=== PATIENT | male | born 1960 | race Caucasian/White ===

== ENCOUNTER 2024-06-24 08:44 | Inpatient (IN) | payer MEDICARE, OTHER ==
--- NOTE | 2024-06-24 08:56 | ED ---
General Adult HPI - General Stated complaint: Chest pain Time Seen by Provider: 06/24/24 08:47 Source: patient, EMS, RN notes reviewed Mode of arrival: EMS Limitations: no limitations - History of Present Illness Initial comments: 63-year-old male presents emergency department via EMS from [place] with chief complaint chest pain. Started proxy 1 hour prior to going to nurses station at [place]. Patient states he does feel better after receiving aspirin. Patient was admitted [place] 1 week ago for crack cocaine use. Patient states he does have a history of HIV and hyperlipidemia denies any other prior cardiac disease denies current shortness of breath fever chills cough - Related Data Allergies Allergy/AdvReac Type Severity Reaction Status Date / Time Penicillins Allergy Rash/Hives Verified 06/24/24 08:54 Review of Systems ROS Statement: Those systems with pertinent positive or pertinent negative responses have been documented in the HPI. ROS Other: All systems not noted in ROS Statement are negative. Past Medical History Past Medical History: Chest Pain / Angina Additional Past Medical History / Comment(s): crack cocaine abuse Past Surgical History: Orthopedic Surgery Additional Past Surgical History / Comment(s): L mastoidectomy, open reduction L tibia. jaw wired shut Past Psychological History: Anxiety, Depression Smoking Status: Current every day smoker Past Alcohol Use History: Occasional Past Drug Use History: Cocaine, Marijuana General Exam Limitations: no limitations General appearance: alert, in no apparent distress Head exam: Present: atraumatic, normocephalic, normal inspection Eye exam: Present: normal appearance, PERRL, EOMI. Absent: scleral icterus, conjunctival injection, periorbital swelling ENT exam: Present: normal exam, normal oropharynx, mucous membranes moist Neck exam: Present: normal inspection, full ROM. Absent: tenderness, meningismus, lymphadenopathy Respiratory exam: Present: normal lung sounds bilaterally. Absent: respiratory distress, wheezes, rales, rhonchi, stridor Cardiovascular Exam: Present: normal rhythm, tachycardia, normal heart sounds. Absent: systolic murmur, diastolic murmur, rubs, gallop, clicks GI/Abdominal exam: Present: soft, normal bowel sounds. Absent: distended, tenderness, guarding, rebound, rigid Neurological exam: Present: alert, oriented X3 Course Vital Signs 06/24/24 06/24/24 06/24/24 08:47 09:26 10:06 Temperature 98.3 F Pulse Rate 108 H 86 80 Respiratory 18 18 18 Rate Blood Pressure 120/73 96/64 125/82 O2 Sat by Pulse 96 100 97 Oximetry EKG Findings - EKG Comments: EKG Findings:: 849 sinus tachycardia with first-degree block rate of 103 FL 212 QRS 93 QT/QTc 359/490 there is no significant ST elevation noted - EKG Results: EKG: interpreted by OSKAR Medical Decision Making - Medical Decision Making Was pt. sent in by a medical professional or institution (, [facility], M[facility] HOLDER, urgent care, hospital, or assisted...) When possible be specific @ -[place] Did you speak to anyone other than the patient for history (EMS, parent, family, police, friend...)? What history was obtained from this source @ -No Did you review nursing and triage notes (agree or disagree)? Why? @ -I reviewed and agree with nursing and triage notes Were old charts reviewed (outside hosp., previous admission, EMS record, old EKG, old radiological studies, urgent care reports/EKG's, assisted records)? Report findings @ -No old charts were reviewed Differential Diagnosis (chest pain, altered mental status, abdominal pain women, abdominal pain men, vaginal bleeding, weakness, fever, dyspnea, syncope, headache, dizziness, GI bleed, back pain, seizure, CVA, palpatations, mental health, musculoskeletal)? @ -Differential Chest Pain: Stable Angina, Unstable Angina, STEMI, NSTEMI Aortic Dissection, Pneumothorax, Musculoskeletal, Esophageal Spasm GERD, Cholecystitis, Pancreatitis, Zoster, this is not meant to be an all-inclusive list. EKG interpreted by me (3pts min.). @ -As above X-rays interpreted by me (1pt min.). @ -Chest x-ray shows hyperinflation CT interpreted by me (1pt min.). @ -None done U/S interpreted by me (1pt. min.). @ -None done What testing was considered but not performed or refused? (CT, X-rays, U/S, labs)? Why? @ -None What meds were considered but not given or refused? Why? @ -None Did you discuss the management of the patient with other professionals (professionals i.e. , BERE, MOLD HOLDER, lab, RT, psych nurse, social science manager, guest service agent, teacher, special service officer, case work aide)? Give summary @ -Dr Mercado for admission Was smoking cessation discussed for >3mins.? @ -No Was critical care preformed (if so, how long)? @ -35 mins Were there social determinants of health that impacted care today? How? (Homelessness, low income, unemployed, alcoholism, drug addiction, transportation, low edu. Level, literacy, decrease access to med. care, intermediate, rehab)? @ -No Was there de-escalation of care discussed even if they declined (Discuss DNR or withdrawal of care, Hospice)? DNR status @ -No What co-morbidities impacted this encounter? (DM, HTN, Smoking, COPD, CAD, Cancer, CVA, ARF, Chemo, Hep., AIDS, mental health diagnosis, sleep apnea, morbid obesity)? @ -Lipidemia, HIV Was patient admitted / discharged? Hospital course, mention meds given and route, prescriptions, significant lab abnormalities, going to OR and other p ertinent info. @ -[Admitted patient's found to have elevated troponin 0.044 patient was started on heparin. Patient did receive aspirin prior to arrival. Symptoms are improving not requiring nitro at this time. Patient will have repeat troponin, echocardiogram cardiology evaluation for NSTEMI. Undiagnosed new problem with uncertain prognosis? @ -No Drug Therapy requiring intensive monitoring for toxicity (Heparin, Nitro, Insulin, Cardizem)? @ -No Were any procedures done? @ -No Diagnosis/symptom? @ -Chest pain Acute, or Chronic, or Acute on Chronic? @ -acute Uncomplicated (without systemic symptoms) or Complicated (systemic symptoms)? @ -complicated Side effects of treatment? @ -No Exacerbation, Progression, or Severe Exacerbation? @ -No Poses a threat to life or bodily function? How? (Chest pain, USA, PA, pneumonia, PE, COPD, DKA, ARF, appy, cholecystitis, CVA, Diverticulitis, Homicidal, Suicidal, threat to staff... and all critical care pts) @ -yes chest pain, risk to cardiac function - Lab Data Result diagrams: 06/24/24 08:57 06/24/24 08:57 Lab Results 06/24/24 06/24/24 06/24/24 Range/Units 08:57 08:57 08:57 WBC 15.73 H (4.50-10.00) 10*3/uL RBC 5.18 (4.40-5.60) 10*6/uL Hgb 17.1 H (13.0-17.0) g/dL Hct 48.0 (39.6-50.0) % MCV 92.7 (80.0-97.0) fL MCH 33.0 H (27.0-32.0) pg MCHC 35.6 (32.0-37.0) g/dL Plt Count 369 (140-440) 10*3/uL MPV 8.8 L (9.5-12.2) fL Immature Gran % (Auto) 0.6 % Neutrophils % 81.2 % Lymphocytes % 8.9 % Monocytes % 8.9 % Eosinophils % 0.1 % Basophils % 0.3 % Immature Gran # 0.09 H (0.00-0.04) 10*3/uL Neutrophils # 12.79 H (1.80-7.70) 10*3/uL Lymphocytes # 1.40 (0.90-5.00) 10*3/uL Monocytes # 1.40 H (0.20-1.00) 10*3/uL Eosinophils # 0.01 L (0.04-0.35) 10*3/uL Basophils # 0.04 (0.00-0.10) 10*3/uL PT 11.7 (10.0-12.5) sec INR 1.1 (<1.2) APTT 20.7 L (22.0-30.0) sec Sodium 135 L (137-145) mmol/L Potassium 4.0 (3.5-5.1) mmol/L Chloride 100 (98-107) mmol/L Carbon Dioxide 23 (22-30) mmol/L Anion Gap 12 mmol/L BUN 24 H (9-20) mg/dL Creatinine 1.15 (0.66-1.25) mg/dL Est GFR (CKD-EPI)AfAm 77 (>60 ml/min/1.73 sqM) Est GFR (CKD-EPI)NonAf 67 (>60 ml/min/1.73 sqM) Glucose 119 H (74-99) mg/dL Calcium 10.1 (8.4-10.2) mg/dL Magnesium 2.2 (1.6-2.3) mg/dL Total Bilirubin 0.9 (0.2-1.3) mg/dL AST 34 (17-59) U/L ALT 24 (4-49) U/L Alkaline Phosphatase 50 (38-126) U/L Troponin I (0.000-0.034) ng/mL NT-Pro-B Natriuret Pep 2320 pg/mL Total Protein 7.5 (6.3-8.2) g/dL Albumin 4.7 (3.5-5.0) g/dL 06/24/24 Range/Units 08:57 WBC (4.50-10.00) 10*3/uL RBC (4.40-5.60) 10*6/uL Hgb (13.0-17.0) g/dL Hct (39.6-50.0) % MCV (80.0-97.0) fL MCH (27.0-32.0) pg MCHC (32.0-37.0) g/dL Plt Count (140-440) 10*3/uL MPV (9.5-12.2) fL Immature Gran % (Auto) % Neutrophils % % Lymphocytes % % Monocytes % % Eosinophils % % Basophils % % Immature Gran # (0.00-0.04) 10*3/uL Neutrophils # (1.80-7.70) 10*3/uL Lymphocytes # (0.90-5.00) 10*3/uL Monocytes # (0.20-1.00) 10*3/uL Eosinophils # (0.04-0.35) 10*3/uL Basophils # (0.00-0.10) 10*3/uL PT (10.0-12.5) sec INR (<1.2) APTT (22.0-30.0) sec Sodium (137-145) mmol/L Potassium (3.5-5.1) mmol/L Chloride (98-107) mmol/L Carbon Dioxide (22-30) mmol/L Anion Gap mmol/L BUN (9-20) mg/dL Creatinine (0.66-1.25) mg/dL Est GFR (CKD-EPI)AfAm (>60 ml/min/1.73 sqM) Est GFR (CKD-EPI)NonAf (>60 ml/min/1.73 sqM) Glucose (74-99) mg/dL Calcium (8.4-10.2) mg/dL Magnesium (1.6-2.3) mg/dL Total Bilirubin (0.2-1.3) mg/dL AST (17-59) U/L ALT (4-49) U/L Alkaline Phosphatase (38-126) U/L Troponin I 0.044 H* (0.000-0.034) ng/mL NT-Pro-B Natriuret Pep pg/mL Total Protein (6.3-8.2) g/dL Albumin (3.5-5.0) g/dL Critical Care Time Critical Care Time: Yes Total Critical Care Time: 35 Disposition Clinical Impression: Chest pain Disposition: ADMITTED IP TO THIS [facility] Condition: Fair Referrals: Nonstaff,Physician [Primary Care Provider] - 1-2 days Time of Disposition: 10:21
[2024-06-24] MEDS: SODIUM CHLORIDE 0.9% 1,000 ML IV STA (09:06)
[2024-06-24 09:07] LABS: Basophils # (A) 0.04 10*3/uL (0.00-0.10); Basophils % (A) 0.3 %; Eosinophils # (A) 0.01 10*3/uL (0.04-0.35); Eosinophils % (A) 0.1 %; HGB 17.1 g/dL (13.0-17.0); Lymphocytes % (A) 8.9 %; MCHC 35.6 g/dL (32.0-37.0); MCV 92.7 fL (80.0-97.0); Mean Platelet Volume 8.8 fL (9.5-12.2); Monocytes % (A) 8.9 %; Neutrophils # (A) 12.79 10*3/uL (1.80-7.70); Neutrophils % (A) 81.2 %; Platelet Count 369 10*3/uL (140-440); RBC 5.18 10*6/uL (4.40-5.60); RDW 12.7 % (11.5-14.5); WBC 15.73 10*3/uL (4.50-10.00)
[2024-06-24 09:20] LABS: ALT 24 U/L (4-49); AST 34 U/L (17-59); African American GFR (CKD) 77 (>60 ml/min/1.73 sqM); Albumin 4.7 g/dL (3.5-5.0); Alkaline Phosphatase 50 U/L (38-126); Anion Gap 12 mmol/L; Blood Urea Nitrogen 24 mg/dL (9-20); Calcium 10.1 mg/dL (8.4-10.2); Carbon Dioxide 23 mmol/L (22-30); Chloride 100 mmol/L (98-107); Glucose 119 mg/dL (74-99); Magnesium 2.2 mg/dL (1.6-2.3); Non-African American GFR(CKD) 67 (>60 ml/min/1.73 sqM); Sodium 135 mmol/L (137-145); Total Bilirubin 0.9 mg/dL (0.2-1.3); Total Protein 7.5 g/dL (6.3-8.2)
--- NOTE | 2024-06-24 09:20 | XR ---
EXAMINATION TYPE: XR chest 2V DATE OF EXAM: 06/24/2024 9:06 AM COMPARISON: None CLINICAL INDICATION: Male, 63 years old with history of Chest Pain, , TECHNIQUE: AP and lateral views FINDINGS: Heart normal size. Aorta and pulmonary vasculature within normal limits. Mild hyperinflation. No cons olidation or pleural effusion. Narrowing of the subacromial space of the right shoulder. IMPRESSION: 1. Mild hyperinflation may reflect depth of inspiration or underlying emphysema. Clinically correlate . Otherwise, no acute process seen. 2. Chronic full-thickness rotator cuff tear suggested at the right shoulder. [facility], Workstation: [facility], 06/24/2024 9:18 AM
[2024-06-24 09:24] LABS: INR 1.1 (<1.2); Partial Thromboplastin Time 20.7 sec (22.0-30.0); Prothrombin Time 11.7 sec (10.0-12.5)
[2024-06-24 09:28] LABS: NT-Pro-B-Type Natriuretic Pept 2320 pg/mL
[2024-06-24] MEDS: HEPARIN SOD,PORK IN 0.45% NACL 25,000 UNIT in 0.45% NACL 1 250ML.BAG IV SCH (10:04)
[2024-06-24] MEDS: HEPARIN SODIUM 1,000 UN/ML (10ML VL) IV ONE (10:04)
[2024-06-24] MEDS ORDERED: NITROGLYCERIN SL TABS 0.4 MG TAB SUBLINGUAL PRN (10:21)
[2024-06-24] MEDS ORDERED: CALCIUM CARB-VIT D 500 MG-5 MCG TAB PO PRN (13:01)
--- NOTE | 2024-06-24 13:55 | CT ---
EXAMINATION TYPE: CT chest wo con DATE OF EXAM: 06/24/2024 1:30 PM COMPARISON: None. CLINICAL INDICATION: Male, 63 years old with history of copd/cap, CHEST PAIN TECHNIQUE: Axial images were obtained at 5 mm thick sections. Reconstructed images are reviewed on [employer] computer in the coronal plane. Contrast used: mL of , (none if empty) Oral contrast used: (none if empty) CT DLP: 336 mGycm, Automated exposure control for dose reduction was used. FINDINGS: Portion of the thyroid visualized is normal. No suspicious lung nodules or focal infiltrates are present. No enlarged mediastinal or hilar adenopathy is evident. A few small shoddy lymph nodes are within th e mediastinum and hilum. The Ascending aorta diameter at the level of the main pulmonary artery is 4 .4 cm. The main pulmonary artery diameter at the bifurcation is 3.7 cm. Moderate coronary artery calcifications present. Limited CT sections are obtained through the upper abdomen. Small to moderate size hiatal hernia is p resent. Note is made of a couple of cysts within the liver. Gallstone is present. IMPRESSION: 1. No acute changes CT chest. 2. Ascending thoracic aortic aneurysm of 4.4 cm. 3. Hiatal hernia. 4. Cholelithiasis [facility], , 06/24/2024 1:53 PM
--- NOTE | 2024-06-24 15:51 | CT ---
EXAMINATION TYPE: CT angio chest DATE OF EXAM: 06/24/2024 3:28 PM COMPARISON: None. CLINICAL INDICATION: Male, 63 years old with history of elevated d-dimer, elevated d-dimer, TECHNIQUE: CT of the chest is performed on a spiral scan at 2 mm thick sections. Study is performed with intravenous contrast timed for evaluation for pulmonary embolism. This will limit additional po rtions of the evaluation. 10mm MIP images reconstructed by the technologist are reviewed on the comp uter in the coronal and sagittal planes. Contrast used:100 ml mL of Isovue 370 with IV Contrast, (none if empty) Oral contrast used: (none if empty) CT DLP: 325.8 mGycm, Automated exposure control for dose reduction was used. FINDINGS: No persistent filling defects are evident to suggest an acute pulmonary embolism. No mediastinal or hilar adenopathy enlarged by CT criteria is evident. The ascending aorta diameter at the level of the main pulmonary artery is 4.1 cm. There is some aneu rysmal bulging along the proximal descending thoracic aorta estimated at 1.8 cm. The main pulmonary artery diameter at the bifurcation is 3.3 cm. There is a moderate-sized hiatal he rnia present. Lung windows are clear. No significant coronary artery calcifications. Limited CT sections were through the upper abdomen. Hepatic cysts are present. IMPRESSION: 1. Aneurysmal dilatation of the ascending thoracic aorta measuring 4.1 cm. There is some focal aneury smal bulge of the proximal descending thoracic aorta distal to the aortic arch estimated at 1.8 cm in depth. 2. No acute pulmonary embolism. [facility], , 06/24/2024 3:49 PM
[2024-06-24] MEDS: HEPARIN SODIUM 1,000 UN/ML (10ML VL) IV PRN (17:15)
[2024-06-24] MEDS ORDERED: NON FORMULARY DRUG (Omega-3 Acid Ethyl Esters [Lovaza] 1 GM Capsule) PO SCH (17:30)
[2024-06-24] MEDS: ATORVASTATIN 20 MG TAB PO SCH (20:58)
[2024-06-24] MEDS: traZODone HCL 100 MG TAB PO SCH (20:58)
--- NOTE | 2024-06-24 23:36 | HP ---
HISTORY AND PHYSICAL HISTORY OF PRESENT ILLNESS: A white male, came to [place] for nausea, vomiting, and now chest pain. He had a mild aneurysm of 4.[address] of the chest, metastatic hiatal hernia. No signs of pulmonary embolism. White count is 15.73, hemoglobin is 17.1, neutrophils high at 12.79, sodium 135, potassium 4.0. PHYSICAL EXAMINATION: CARDIOVASCULAR: S1, S2. LUNGS: Decreased breath sounds. PSYCH: Fair mood and affect. NEUROLOGIC: Alert, and oriented x3. GI: Soft. ASSESSMENT: He has a history of HIV and hyperlipidemia. Denies any other cardiac disease. History of crack cocaine abuse. Goes to [place] for this. He has had depression. Left mastoid surgery. Anxiety, depression. Current everyday smoker, cocaine, marijuana. EKG, sinus tachycardia. Acute emesis secondary to possible gastroenteritis with possible aspiration pneumonia. White count is elevated secondary to possible bronchitis or pneumonia. 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 Atypical chest pain. Waiting for Cardiology to clear the patient. Elevated troponin x1. Prognosis guarded. MMODL / IJN: [id number] /
[2024-06-25 05:13] LABS: Glucose,Whole Blood 139 mg/dL (70-110)
[2024-06-25] MEDS: SODIUM CHLORIDE 0.9% 1,000 ML IV ONE (05:25)
[2024-06-25 05:56] LABS: Basophils # (A) 0.05 10*3/uL (0.00-0.10); Basophils % (A) 0.4 %; Eosinophils # (A) 0.01 10*3/uL (0.04-0.35); Eosinophils % (A) 0.1 %; HCT 34.2 % (39.6-50.0); Lymphocytes % (A) 14.6 %; MCH 32.9 pg (27.0-32.0); MCHC 34.8 g/dL (32.0-37.0); MCV 94.5 fL (80.0-97.0); Mean Platelet Volume 8.9 fL (9.5-12.2); Monocytes # (A) 1.47 10*3/uL (0.20-1.00); Monocytes % (A) 11.3 %; Neutrophils # (A) 9.45 10*3/uL (1.80-7.70); Neutrophils % (A) 72.8 %; Platelet Count 268 10*3/uL (140-440); RBC 3.62 10*6/uL (4.40-5.60); RDW 12.8 % (11.5-14.5); WBC 12.98 10*3/uL (4.50-10.00)
[2024-06-25 06:02] LABS: HGB 11.9 g/dL (13.0-17.0)
[2024-06-25 06:05] LABS: Glucose,Whole Blood 125 mg/dL (70-110)
[2024-06-25 06:05] LABS: INR 1.1 (<1.2); Partial Thromboplastin Time 35.2 sec (22.0-30.0); Prothrombin Time 12.1 sec (10.0-12.5)
--- NOTE | 2024-06-25 06:45 | P.CNPUL ---
History of Present Illness Consult date: 06/25/24 Requesting physician: Keyon Cota Reason for consult: other (ICU management, GI bleed) Chief complaint: Chest pain History of present illness: Patient is a 63-year-old male with past medical history significant for crack cocaine abuse, hyperlipidemia. Sent in from [place] with a chief complaint of chest pain yesterday morning. Per the patient he has had intractable nausea and vomiting that started on Monday. Reportedly dark-colored emesis. No alyssia blood. Reportedly, was taking daily 200 mg tab ibuprofen for chronic right hip pain. Workup in the emergency department including a chest CT angio did not show any acute pulmonary embolism. Remarkable for aneurysm dilation of the ascending thoracic aorta measuring 4.1 cm with focal aneurysmal bulge of the proximal descending thoracic aorta distal to the thoracic aortic arch estimated at 1.8 cm in depth. Also, moderate size hiatal hernia. Labs done on admission include a CBC with a WBC count of 15.7, hemoglobin 17, platelets 369. D-dimer was 1.6.. Most recent APTT 35.2. CMP: Sodium 135, potassium 4, chloride 100, ser um bicarb 23, BUN 24, creatinine 1.15, glucose 139. LFTs not elevated. Serial troponins including 0.044, 0.024, and 0.021. NT proBNP 2320. Chest pain described as substernal, developed with his severe intractable nausea and vomiting and retching. Non-radiating. Denies lower extremity edema. Patient was previously started on IV heparin infusion. Rapid response called early this morning for large black stool liquid stool. Near syncopal event was reported with ambulation to the bathroom. Also, hypotension with reported blood pressures as low as 69/46 mmHg. 1 L fluid bolus was started during the rapid response. No further nausea or vomiting. Denies abdominal pain. I am told there is no GI coverage this week. General surgery consulted them. IV heparin has been stopped. Repeat labs are pending. Review of Systems Constitutional: Denies chills, Denies fever, Denies poor appetite, Denies sweats, Denies weight gain, Denies weight loss Ears, nose, mouth and throat: Denies headache, Denies nasal congestion, Denies nasal discharge, Denies post-nasal drip, Denies sinus pain, Denies sinus pressure, Denies sore throat Cardiovascular: Reports chest pain, Denies dyspnea on exertion, Denies leg edema, Denies lightheadedness, Denies orthopnea, Denies palpitations, Denies paroxysmal nocturnal dyspnea, Denies syncope (Near syncopal event reported with ambulation to the bathroom after large black tarry bowel movement) Respiratory: Denies congestion, Denies cough, Denies cough with sputum, Denies dyspnea, Denies hemoptysis Gastrointestinal: Reports as per HPI Genitourinary: Denies dysuria Musculoskeletal: Denies limitation of motion Integumentary: Denies rash, Denies unusual bruising Neurological: Denies head injury, Denies headaches, Denies seizures, Denies syncope, Denies visual changes Psychiatric: Denies anxiety, Denies depression Past Medical History Past Medical History: Chest Pain / Angina Additional Past Medical History / Comment(s): crack cocaine abuse History of Any Multi-Drug Resistant Organisms: MRSA Date of last positivie culture/infection: 2004 MDRO Source:: treatment center Past Surgical History: Orthopedic Surgery Additional Past Surgical History / Comment(s): L mastoidectomy, open reduction L tibia. jaw wired shut, hemroidectomy Past Psychological History: Anxiety, Depression Smoking Status: Current every day smoker Past Alcohol Use History: Occasional Past Drug Use History: Cocaine, Marijuana Medications and Allergies Home Medications Medication Instructions Recorded Confirmed Type Acetaminophen [Tylenol] 650 mg PO Q4H PRN 06/24/24 06/24/24 History Aspirin 325 mg PO ONCE 06/24/24 06/24/24 History Calcium Phos/D3/Magnesium/Zinc 1 tab PO TID PRN 06/24/24 06/24/24 History [Oywyvjh-Apc-Wibf-Vitamin D3] Dolutegravir Sodium/Lamivudine 1 tab PO DAILY 06/24/24 06/24/24 History [Dovato 50-300 mg Tablet] Ibuprofen [Motrin Ib] 600 mg PO Q6H PRN 06/24/24 06/24/24 History Multivitamins, Thera [Multivitamin 1 tab PO DAILY 06/24/24 06/24/24 History (formulary)] [place]-3 Acid Ethyl Esters [Lovaza] 2 gm PO BID-W/MEALS 06/24/24 06/24/24 History Rosuvastatin [Crestor] 10 mg PO HS 06/24/24 06/24/24 History Thiamine [Vitamin B-1] 100 mg PO DAILY 06/24/24 06/24/24 History buPROPion XL [Wellbutrin XL] 300 mg PO DAILY 06/24/24 06/24/24 History ondansetron HCL [Zofran] 8 mg PO Q6H PRN 06/24/24 06/24/24 History traZODone HCL [Desyrel] 100 mg PO HS 06/24/24 06/24/24 History Allergies Allergy/AdvReac Type Severity Reaction Status Date / Time Penicillins Allergy Rash/Hives Verified 06/24/24 10:42 Physical Exam Vitals: Vital Signs Temp Pulse Pulse Resp BP BP BP 06/25/24 05:40 74 18 74/37 06/25/24 05:35 78 84/45 06/25/24 05:13 66 70/62 06/25/24 05:04 63 69/46 06/25/24 01:49 98.6 F 59 L 16 95/60 06/24/24 20:00 98.5 F 101 H 16 169/95 06/24/24 15:29 74 17 117/83 06/24/24 15:00 99.3 F 78 18 181/96 06/24/24 12:00 80 17 175/96 06/24/24 11:46 83 16 170/94 06/24/24 10:06 80 18 125/82 06/24/24 09:26 86 18 96/64 06/24/24 08:47 98.3 F 108 H 18 120/73 Pulse Ox 06/25/24 05:40 97 06/25/24 05:35 97 06/25/24 05:13 98 06/25/24 05:04 98 06/25/24 01:49 94 L 06/24/24 20:00 96 06/24/24 15:29 98 06/24/24 15:00 96 06/24/24 12:00 94 L 06/24/24 11:46 95 06/24/24 10:06 97 06/24/24 09:26 100 06/24/24 08:47 96 Intake and Output 06/24/24 06/24/24 06/25/24 14:59 22:59 06:59 Intake Total 68.263 78.388 Balance 68.263 78.388 Intake: Intake, IV Titration 68.263 78.388 Amount Heparin Sod,Pork in 0.45% 68.263 78.388 NaCl 25,000 unit In 0.45 % NaCl 1 250ml.bag @ 12 UNITS/KG/HR 9.525 mls/hr IV .Q24H [facility] Rx#: [id number] Other: Voiding Method Toilet # Voids 2 3 Weight 79.379 kg 79.379 kg GENERAL EXAM: Alert, 63-year-old male, comfortable in no apparent distress. HEAD: Normocephalic and atraumatic EYES: Normal reaction of pupils, equal size. NOSE: Clear with pink turbinates. THROAT: No erythema or exudates. NECK: No masses, no JVD. CHEST: No chest wall deformity. LUNGS: Equal air entry with no crackles, wheeze, rhonchi or dullness. On room air. No conversational dyspnea or accessory muscle use.. CVS: S1 and S2 normal with soft systolic grade 2 murmur, regular rhythm. No other extra heart sounds ABDOMEN: No hepatosplenomegaly, active bowel sounds, no guarding or rigidity. SPINE: No scoliosis or deformity SKIN: No rashes CENTRAL NERVOUS SYSTEM: No focal deficits, tone is normal in all 4 extremities. EXTREMITIES: There is no peripheral edema, clubbing, or cyanosis. Peripheral pulses are intact. Results - Laboratory Findings CBC and BMP: 06/25/24 05:47 06/24/24 08:57 PT/INR, D-dimer PT 11.7 sec (10.0-12.5) 06/24/24 08:57 INR 1.1 (<1.2) 06/24/24 08:57 D-Dimer 1.61 mg/L FEU (<0.60) H 06/24/24 13:08 Abnormal lab findings: Abnormal Labs 06/24/24 06/24/24 06/24/24 08:57 08:57 08:57 WBC 15.73 H Hgb 17.1 H MCH 33.0 H MPV 8.8 L Immature Gran # 0.09 H Neutrophils # 12.79 H Monocytes # 1.40 H Eosinophils # 0.01 L APTT 20.7 L D-Dimer Sodium 135 L BUN 24 H Glucose 119 H POC Glucose (mg/dL) Troponin I 06/24/24 06/24/24 06/24/24 08:57 13:08 23:00 WBC Hgb MCH MPV Immature Gran # Neutrophils # Monocytes # Eosinophils # APTT 32.5 H D-Dimer 1.61 H Sodium BUN Glucose POC Glucose (mg/dL) Troponin I 0.044 H* 06/25/24 05:11 WBC Hgb MCH MPV Immature Gran # Neutrophils # Monocytes # Eosinophils # APTT D-Dimer Sodium BUN Glucose POC Glucose (mg/dL) 139 H Troponin I - Diagnostic Findings Chest x-ray: image reviewed Assessment and Plan Assessment: Acute upper GI bleed Acute blood loss anemia, secondary to above Symptomatic hypotension/hypovolemia, status post 1 L fluid resuscitation Thoracic aortic aneurysm, ascending thoracic aorta measuring 4.1 cm with focal aneurysmal bulge of the proximal descending thoracic aorta distal to the thoracic aortic arch estimated at 1.8 cm in depth Moderate size hiatal hernia Elevated initial troponin, trending down, not consistent with ACS Atypical chest pain History of hyperlipidemia History of cocaine abuse History of HIV on Dovato Chronic ongoing tobacco dependence Plan: I was called during the rapid response, patient was reportedly profoundly hypotensive, and transfered to the ICU Currently receiving 1 L fluid bolus Repeat labs significant for a 5 g drop in hemoglobin Trend H&H IV Heparin was stopped Add Protonix 40 mg twice daily Consult general surgery Patient will continue to be monitored in the intensive care unit I have personally seen and examined the patient, performed the documentation and the assessment and plan as written. Number of minutes spent on the visit:20 This dictation was produced using [employer] dictation software please excuse grammatical errors Time with Patient: Greater than 30
[2024-06-25] MEDS: SODIUM CHLORIDE 0.9% 1,000 ML IV SCH (06:57)
[2024-06-25 08:15] LABS: HCT 33.6 % (39.6-50.0); HGB 11.5 g/dL (13.0-17.0); MCH 33.1 pg (27.0-32.0); MCHC 34.2 g/dL (32.0-37.0); MCV 96.8 fL (80.0-97.0); Mean Platelet Volume 9.2 fL (9.5-12.2); Platelet Count 252 10*3/uL (140-440); RBC 3.47 10*6/uL (4.40-5.60); WBC 11.85 10*3/uL (4.50-10.00)
[2024-06-25 08:46] LABS: Chol/HDL Ratio 3.63 Ratio; LDL Cholesterol,Calculated 77.4 mg/dL (0.0-131.0)
[2024-06-25 08:51] LABS: African American GFR (CKD) 75 (>60 ml/min/1.73 sqM); Anion Gap 9 mmol/L; Blood Urea Nitrogen 78 mg/dL (9-20); Calcium 8.5 mg/dL (8.4-10.2); Carbon Dioxide 20 mmol/L (22-30); Chloride 106 mmol/L (98-107); Glucose 99 mg/dL (74-99); Non-African American GFR(CKD) 65 (>60 ml/min/1.73 sqM); Potassium 3.5 mmol/L (3.5-5.1); Sodium 135 mmol/L (137-145)
[2024-06-25] MEDS ORDERED: Potassium Replacement Protocol 1 EACH MISC MISCELLANE PRN (08:58)
[2024-06-25] MEDS ORDERED: ASPIRIN 325 MG TAB PO SCH (09:00)
[2024-06-25] MEDS: POTASSIUM CHLORIDE 10 MEQ in WATER FOR INJECTION 1 100ML.BAG IVPB SCH ×2 (09:04→16:21)
[2024-06-25] MEDS: PANTOPRAZOLE 40 MG/10 ML VIAL IVP SCH (09:11)
--- NOTE | 2024-06-25 09:58 | CA ---
Transthoracic Echo Report Name: Jose Enrique Elmore Age: 63 Gender: M : 1960 Exam Date: 06/24/2024 14:19 Exam Location: [place] [facility] Ht (in): 71 Wt (lb): 175 Ordering Physician: Nate Kerr Attending/Referring Phys: [id number], [facility] Macey Godwin, RDEBONIE Procedure CPT: Indications: Chest Pain Cardiac Hx: Technical Quality: Poor Contrast 1: Total Dose (mL): Contrast 2: Total Dose (mL): MEASUREMENTS (Male / Female) Normal Values 2D ECHO LV Diastolic Diameter PLAX 5.0 cm 4.2 - 5.9 / 3.9 - 5.3 cm LV Systolic Diameter PLAX 3.5 cm IVS Diastolic Thickness 1.1 cm 0.6 - 1.0 / 0.6 - 0.9 cm LVPW Diastolic Thickness 1.1 cm 0.6 - 1.0 / 0.6 - 0.9 cm LV Relative Wall Thickness 0.4 RV Internal Dim ED PLAX 3.1 cm LVOT Diameter 2.2 cm Aortic Root Diameter 3.9 cm LA Systolic Diameter LX 3.3 cm 3.0 - 4.0 / 2.7 - 3.8 cm LV Diastolic Volume MOD 4C 121.4 cm??? LV Systolic Volume MOD 4C 52.7 cm??? LV Ejection Fraction MOD 4C 56.6 % LV Diastolic Length 4C 9.4 cm LV Systolic Length 4C 7.6 cm LV Diastolic Volume MOD 2C 93.9 cm??? LV Systolic Volume MOD 2C 50.6 cm??? LV Ejection Fraction MOD 2C 46.1 % LV Diastolic Length 2C 8.3 cm LV Systolic Length 2C 7.6 cm LA Volume 51.3 cm??? 18 - 58 / 22 - 52 cm??? LA Volume Index 25.6 cm???/m??? 16 - 28 cm???/m??? DOPPLER AI Peak Velocity 486.9 cm/s AI Peak Gradient 94.8 mmHg AI Pressure Half Time 540.0 ms MV Area PHT 3.5 cm??? Mitral E Point Velocity 55.5 cm/s Mitral A Point Velocity 93.9 cm/s Mitral E to A Ratio 0.6 MV Deceleration Time 215.9 ms TR Peak Velocity 122.0 cm/s TR Peak Gradient 6.0 mmHg Right Atrial Pressure 5.0 mmHg Pulmonary Artery Systolic Pressu 11.0 mmHg Right Ventricular Systolic Press 11.0 mmHg FINDINGS Left Ventricle Left ventricular ejection fraction is estimated at 55-60%. Mildly increased septal wall thickness. Right Ventricle Normal right ventricular size and function. Right ventricular systolic pressure within normal limits. Right Atrium Normal right atrial size. Left Atrium Normal left atrial size. Mitral Valve Structurally normal mitral valve. No mitral stenosis. Trace mitral regurgitation. Aortic Valve Trileaflet aortic valve. No aortic stenosis. [id number] aortic regurgitation. Tricuspid Valve Structurally normal tricuspid valve. No tricuspid stenosis. Trace tricuspid regurgitation. Pulmonic Valve Structurally normal pulmonic valve. No pulmonic stenosis. No pulmonic regurgitation. Pericardium No pericardial effusion. Aorta Mild aortic dilatation at the level of the sinuses of valsalva (root). CONCLUSIONS Technically difficult study with poor acoustic windows EF 55% Mild septal hypertrophy No obvious regional wall motion abnormality Normal RV size systolic function Mild to moderate aortic regurgitation Mild mitral regurgitation Previewed by: Dr Jevon Palma (Electronically Signed) Final Date: 25 June 2024 09:57
[2024-06-25] MEDS ORDERED: LIDOCAINE 2% (PF) 20 MG/ML 5 ML VIAL ONE (10:00)
[2024-06-25] MEDS ORDERED: PROPOFOL 10 MG/ML 20 ML VIAL IV ONE (10:00)
[2024-06-25] MEDS: IV FLUID CONTINUATION 1,000 ML IV ONE (10:03)
--- NOTE | 2024-06-25 10:05 | P.GSCN ---
History of Present Illness Consult date: 06/25/24 Reason for Consult: Upper GI bleed History of present illness: Patient came to the hospital from substance abuse rehab with chest pain. Valeri bonds had a CAT scan of the chest and also CTA showing an aneurysm apparently that he has known about. CAT scan was reviewed. There is some thickening of the esophagus. He was started on a heparin drip. Starting this morning had some near syncopal episode with hypotension and black tarry stools. Patient says he has a history of previous reflux esophagitis. Last upper endoscopy thinks was a few years ago. Patient with additional medical history including HIV and cocaine use. Hemoglobin went from 17-11. Past Medical History Past Medical History: Chest Pain / Angina Additional Past Medical History / Comment(s): crack cocaine abuse History of Any Multi-Drug Resistant Organisms: MRSA Year Discovered:: 2004 MDRO Source:: treatment center Past Surgical History: Orthopedic Surgery Additional Past Surgical History / Comment(s): L mastoidectomy, open reduction L tibia. jaw wired shut, hemroidectomy Past Psychological History: Anxiety, Depression Smoking Status: Current every day smoker Past Alcohol Use History: Occasional Past Drug Use History: Cocaine, Marijuana Medications and Allergies Home Medications Medication Instructions Recorded Confirmed Type Acetaminophen [Tylenol] 650 mg PO Q4H PRN 06/24/24 06/24/24 History Aspirin 325 mg PO ONCE 06/24/24 06/24/24 History Calcium Phos/D3/Magnesium/Zinc 1 tab PO TID PRN 06/24/24 06/24/24 History [Rwfwmhd-Jvm-Lgyn-Vitamin D3] Dolutegravir Sodium/Lamivudine 1 tab PO DAILY 06/24/24 06/24/24 History [Dovato 50-300 mg Tablet] Ibuprofen [Motrin Ib] 600 mg PO Q6H PRN 06/24/24 06/24/24 History Multivitamins, Thera [Multivitamin 1 tab PO DAILY 06/24/24 06/24/24 History (formulary)] [place]-3 Acid Ethyl Esters [Lovaza] 2 gm PO BID-W/MEALS 06/24/24 06/24/24 History Rosuvastatin [Crestor] 10 mg PO HS 06/24/24 06/24/24 History Thiamine [Vitamin B-1] 100 mg PO DAILY 06/24/24 06/24/24 History buPROPion XL [Wellbutrin XL] 300 mg PO DAILY 06/24/24 06/24/24 History ondansetron HCL [Zofran] 8 mg PO Q6H PRN 06/24/24 06/24/24 History traZODone HCL [Desyrel] 100 mg PO HS 06/24/24 06/24/24 History Allergies Allergy/AdvReac Type Severity Reaction Status Date / Time Penicillins Allergy Rash/Hives Verified 06/24/24 10:42 Surgical - Exam Vital Signs Temp Pulse Resp BP Pulse Ox 98.3 F 108 H 18 120/73 96 06/24/24 08:47 06/24/24 08:47 06/24/24 08:47 06/24/24 08:47 06/24/24 08:47 Physical exam: General: Well-developed, well-nourished HEENT: Normocephalic, sclerae nonicteric Abdomen: Nontender, nondistended Extremities: No edema Neuro: Alert and oriented Results - Labs 06/25/24 07:50 06/25/24 07:50 Abnormal Lab Results - Last 24 Hours (Table) 06/24/24 06/24/24 06/24/24 Range/Units 13:08 15:30 23:00 WBC (4.50-10.00) 10*3/uL RBC (4.40-5.60) 10*6/uL Hgb (13.0-17.0) g/dL Hct (39.6-50.0) % MCH (27.0-32.0) pg MPV (9.5-12.2) fL Immature Gran # (0.00-0.04) 10*3/uL Neutrophils # (1.80-7.70) 10*3/uL Monocytes # (0.20-1.00) 10*3/uL Eosinophils # (0.04-0.35) 10*3/uL APTT 32.5 H (22.0-30.0) sec D-Dimer 1.61 H (<0.60) mg/L FEU Sodium (137-145) mmol/L Carbon Dioxide (22-30) mmol/L BUN (9-20) mg/dL POC Glucose (mg/dL) (70-110) mg/dL HDL Cholesterol 38.60 L (40.00-60.00) mg/dL 06/25/24 06/25/24 06/25/24 Range/Units 05:11 05:36 05:47 WBC 12.98 H (4.50-10.00) 10*3/uL RBC 3.62 L (4.40-5.60) 10*6/uL Hgb 11.9 L D (13.0-17.0) g/dL Hct 34.2 L (39.6-50.0) % MCH 32.9 H (27.0-32.0) pg MPV 8.9 L (9.5-12.2) fL Immature Gran # 0.10 H (0.00-0.04) 10*3/uL Neutrophils # 9.45 H (1.80-7.70) 10*3/uL Monocytes # 1.47 H (0.20-1.00) 10*3/uL Eosinophils # 0.01 L (0.04-0.35) 10*3/uL APTT 35.2 H (22.0-30.0) sec D-Dimer (<0.60) mg/L FEU Sodium (137-145) mmol/L Carbon Dioxide (22-30) mmol/L BUN (9-20) mg/dL POC Glucose (mg/dL) 139 H (70-110) mg/dL HDL Cholesterol (40.00-60.00) mg/dL 06/25/24 06/25/24 06/25/24 Range/Units 06:03 07:50 07:50 WBC 11.85 H (4.50-10.00) 10*3/uL RBC 3.47 L (4.40-5.60) 10*6/uL Hgb 11.5 L (13.0-17.0) g/dL Hct 33.6 L (39.6-50.0) % MCH 33.1 H (27.0-32.0) pg MPV 9.2 L (9.5-12.2) fL Immature Gran # (0.00-0.04) 10*3/uL Neutrophils # (1.80-7.70) 10*3/uL Monocytes # (0.20-1.00) 10*3/uL Eosinophils # (0.04-0.35) 10*3/uL APTT (22.0-30.0) sec D-Dimer (<0.60) mg/L FEU Sodium 135 L (137-145) mmol/L Carbon Dioxide 20 L (22-30) mmol/L BUN 78 H (9-20) mg/dL POC Glucose (mg/dL) 125 H (70-110) mg/dL HDL Cholesterol (40.00-60.00) mg/dL Diabetes panel 06/24/24 06/25/24 Range/Units 15:30 07:50 Sodium 135 L (137-145) mmol/L Potassium 3.5 (3.5-5.1) mmol/L Chloride 106 (98-107) mmol/L Carbon Dioxide 20 L (22-30) mmol/L BUN 78 H (9-20) mg/dL Creatinine 1.17 (0.66-1.25) mg/dL Glucose 99 (74-99) mg/dL Calcium 8.5 (8.4-10.2) mg/dL Triglycerides 120.00 (0.00-149.00) mg/dL HDL Cholesterol 38.60 L (40.00-60.00) mg/dL Calcium panel 06/25/24 Range/Units 07:50 Calcium 8.5 (8.4-10.2) mg/dL Pituitary panel 06/25/24 Range/Units 07:50 Sodium 135 L (137-145) mmol/L Potassium 3.5 (3.5-5.1) mmol/L Chloride 106 (98-107) mmol/L Carbon Dioxide 20 L (22-30) mmol/L BUN 78 H (9-20) mg/dL Creatinine 1.17 (0.66-1.25) mg/dL Glucose 99 (74-99) mg/dL Calcium 8.5 (8.4-10.2) mg/dL Adrenal panel 06/25/24 Range/Units 07:50 Sodium 135 L (137-145) mmol/L Potassium 3.5 (3.5-5.1) mmol/L Chloride 106 (98-107) mmol/L Carbon Dioxide 20 L (22-30) mmol/L BUN 78 H (9-20) mg/dL Creatinine 1.17 (0.66-1.25) mg/dL Glucose 99 (74-99) mg/dL Calcium 8.5 (8.4-10.2) mg/dL Assessment and Plan (1) GI bleed Narrative/Plan: Will proceed with upper endoscopy at this time. Current Visit: Yes Status: Acute Code(s): K92.2 - GASTROINTESTINAL HEMORRHAGE, UNSPECIFIED SNOMED Code(s): 80806869
--- NOTE | 2024-06-25 10:21 | P.PCN ---
Date of Procedure: 06/25/24 Procedure(s) Performed: Preoperative Dx: Upper GI bleed Postoperative Dx: Erosive esophagitis, gastritis, duodenitis, hiatal hernia Procedure: EGD with Bx Anesthesia: Sedation Endoscopist: Dr. Vazquez Specimens: Duodenum, antrum, distal esophagus Endoscopic Procedure: The patient was on the endoscopy table in the left decubitus position. The Olympus gastroscope was inserted into the oropharynx and passed under direct visualization to the region of the third portion of the duodenum. From that point the scope was slowly withdrawn inspecting all surfaces carefully. There was mild duodenitis present without ulcerations. Biopsies of the duodenum took place. The pylorus is widely patent. The stomach was inspected. The patient had mild diffuse gastritis. Biopsy of the antrum took place. Retroflexion revealed a small to medium sized hiatal hernia. The GE junction was present 2 to 3 cm above the diaphragmatic hiatus. At the GE junction there was an adherent clot. This measured about 1.5 cm in size. With manipulation this was able to be removed. There was no active bleeding. There was evidence of esophagitis beneath this and this was the likely site of recent active bleeding. Biopsies of the distal esophagus took place. The patient had erosive esophagitis measuring a length of approximately 6 cm. This was circumferential. No deep ulcerations or varices were seen. No active bleeding was seen. The proximal esophagus appeared normal. The patient was then taken to the recovery room in stable condition per anesthesia guidelines. Recommendations: Begin liquid diet. Continue antiacids. Hold anticoagulation. Await biopsy results. Will recommend repeat upper endoscopy 3 months.
[2024-06-25 10:35] LABS: Glucose,Whole Blood 103 mg/dL (70-110)
[2024-06-25] MEDS: SUCRALFATE 1 GM TAB PO SCH (11:23)
[2024-06-25] MEDS: MULTIVITAMINS, THERA 1 EACH TAB PO SCH (11:23)
[2024-06-25] MEDS: DOLUTEGRAVIR SODIUM PO SCH (11:24)
[2024-06-25] MEDS: LAMIVUDINE PO SCH (11:24)
[2024-06-25] MEDS: buPROPion XL 300 MG TAB.ER.24H PO SCH (11:48)
[2024-06-25] MEDS: THIAMINE 100 MG TAB PO SCH (11:48)
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
--- NOTE | 2024-06-25 23:33 | PN ---
PROGRESS NOTE SUBJECTIVE: A 63-year-old white male, admitted to the ICU. Apparently, had some hypotension, status post EGD. Now, responding to fluids cocaine and alcohol abuse. Cardiology evaluated him. Said chest pain related GI source, non-STEMI type 2, GI bleed, cocaine abuse, tobacco use, has ascending aortic aneurysm . No beta- blockers due to cocaine. Echo shows preserved ejection fraction. Blood pressure control to be continued. Blood pressure is elevated now. I have to go back on the blood pressure medications. CIWA protocol. Prognosis is guarded. MMODL / IJN: [id number] /
[2024-06-26 06:05] LABS: Basophils # (A) 0.05 10*3/uL (0.00-0.10); Basophils % (A) 0.6 %; Eosinophils # (A) 0.05 10*3/uL (0.04-0.35); Eosinophils % (A) 0.6 %; HCT 28.5 % (39.6-50.0); Lymphocytes # (A) 1.23 10*3/uL (0.90-5.00); Lymphocytes % (A) 15.2 %; MCH 33.7 pg (27.0-32.0); MCHC 34.7 g/dL (32.0-37.0); MCV 96.9 fL (80.0-97.0); Mean Platelet Volume 9.2 fL (9.5-12.2); Monocytes # (A) 0.73 10*3/uL (0.20-1.00); Neutrophils # (A) 5.98 10*3/uL (1.80-7.70); Platelet Count 210 10*3/uL (140-440); RBC 2.94 10*6/uL (4.40-5.60); WBC 8.09 10*3/uL (4.50-10.00)
[2024-06-26 06:17] LABS: HGB 9.9 g/dL (13.0-17.0)
[2024-06-26 07:04] LABS: ALT 13 U/L (4-49); AST 17 U/L (17-59); African American GFR (CKD) >90 (>60 ml/min/1.73 sqM); Albumin 2.7 g/dL (3.5-5.0); Alkaline Phosphatase 36 U/L (38-126); Anion Gap 6 mmol/L; Blood Urea Nitrogen 28 mg/dL (9-20); Calcium 8.6 mg/dL (8.4-10.2); Carbon Dioxide 21 mmol/L (22-30); Chloride 107 mmol/L (98-107); Glucose 118 mg/dL (74-99); Non-African American GFR(CKD) 83 (>60 ml/min/1.73 sqM); Potassium 3.4 mmol/L (3.5-5.1); Sodium 134 mmol/L (137-145); Total Bilirubin 0.7 mg/dL (0.2-1.3); Total Protein 4.7 g/dL (6.3-8.2)
[2024-06-26] MEDS: POTASSIUM CHLORIDE ER 20 MEQ TAB.ER PO SCH (07:37)
--- NOTE | 2024-06-26 11:58 | P.PN ---
Subjective Progress Note Date: 06/26/24 Principal diagnosis: Chest pain. Patient is a 63-year-old male with past medical history significant for crack cocaine abuse, hyperlipidemia. Sent in from [place] with a chief complaint of chest pain yesterday morning. Per the patient he has had intractable nausea and vomiting that started on Monday. Reportedly dark-colored emesis. No alyssia blood. Reportedly, was taking daily 200 mg tab ibuprofen for chronic right hip pain. Workup in the emergency department including a chest CT angio did not show any acute pulmonary embolism. Remarkable for aneurysm dilation of the ascending thoracic aorta measuring 4.1 cm with focal aneurysmal bulge of the proximal descending thoracic aorta distal to the thoracic aortic arch estimated at 1.8 cm in depth. Also, moderate size hiatal hernia. Labs done on admission include a CBC with a WBC count of 15.7, hemoglobin 17, platelets 369. D-dimer was 1.6.. Most recent APTT 35.2. CMP: Sodium 135, potassium 4, chloride 100, serum bicarb 23, BUN 24, creatinine 1.15, glucose 139. LFTs not elevated. Serial troponins including 0.044, 0.024, and 0.021. NT proBNP 2320. Chest pain described as substernal, developed with his severe intractable nausea and vomiting and retching. Non-radiating. Denies lower extremity edema. Patient was previously started on IV heparin infusion. Rapid response called early this morning for large black stool liquid stool. Near syncopal event was reported with ambulation to the bathroom. Also, hypotension with reported blood pressures as low as 69/46 mmHg. 1 L fluid bolus was started during the rapid response. No further nausea or vomiting. Denies abdominal pain. I am told there is no GI coverage this week. General surgery consulted them. IV heparin has been stopped. Repeat labs are pending. Progress note dated June 26, 2024. 63-year-old male seen today in room 255. He is resting comfortably in bed. He is awake and alert. He is currently on room air. He is getting saline at 75 cc an hour, which can be discontinued. The patient could be transferred out to the general medical floor. He has been stable overnight. White count is 8.09, hemoglobin 9.9, hematocrit 28.5, and platelet count of 210,000. Sodium 134, potassium 3.4, chlorides 107, CO2 21, BUN 28, and creatinine 0.96. Glucose is 118. Albumin is 2.7. Objective - Vital Signs Vital signs: Vital Signs Temp 98.1 F 06/25/24 20:00 Pulse 71 06/26/24 04:00 Resp 17 06/26/24 04:00 BP 99/59 06/26/24 04:00 Pulse Ox 95 06/26/24 04:00 FiO2 Intake & Output 06/25/24 06/26/24 06/26/24 18:59 06:59 18:59 Intake Total 1575 225 Output Total 1575 850 Balance 0 -625 Weight 76.1 kg Intake: IV 300 225 Sodium Chloride 0.9% 1, 225 000 ml @ 75 mls/hr IV . [id number] JODY Rx#:[id number] Intake, IV Titration 1275 Amount Potassium Chloride 10 meq 600 In Water For Injection 1 100ml.bag @ 100 mls/hr IVPB Q1HR JODY Rx#: [id number] Sodium Chloride 0.9% 1, 675 000 ml @ 75 mls/hr IV . [id number] JODY Rx#:[id number] Output: Urine 1575 850 Other: # Voids 0 # Bowel Movements 0 - Exam No acute distress, oriented 3. HEENT examination is grossly unremarkable. Mucous membranes are moist. No oral lesions. Neck supple. Full range of motion. No adenopathy thyromegaly or neck vein distention. Cardiovascular examination reveals regular rhythm rate. S1-S2 normal. No S3 or S4. A soft systolic murmur is noted. Lungs reveal clear breath sounds. Breath sounds are equal bilaterally. No adventitious lung sounds including wheezes rhonchi or crackles. Abdomen soft bowel sounds are heard. No masses or tenderness. Extremities are intact. No cyanosis clubbing or edema. Skin is without rash or lesion. Neurologic examination is brief but nonfocal. - Labs CBC & Chem 7: 06/26/24 05:00 06/26/24 05:00 Labs: Abnormal Lab Results - Last 24 Hours (Table) 06/26/24 06/26/24 Range/Units 05:00 05:00 RBC 2.94 L (4.40-5.60) 10*6/uL Hgb 9.9 L D (13.0-17.0) g/dL Hct 28.5 L (39.6-50.0) % MCH 33.7 H (27.0-32.0) pg MPV 9.2 L (9.5-12.2) fL Immature Gran # 0.05 H (0.00-0.04) 10*3/uL Sodium 134 L (137-145) mmol/L Potassium 3.4 L (3.5-5.1) mmol/L Carbon Dioxide 21 L (22-30) mmol/L BUN 28 H (9-20) mg/dL Glucose 118 H (74-99) mg/dL Alkaline Phosphatase 36 L (38-126) U/L Total Protein 4.7 L (6.3-8.2) g/dL Albumin 2.7 L (3.5-5.0) g/dL Assessment and Plan Assessment: Acute upper GI bleed. Acute blood loss anemia, secondary to above. Symptomatic hypotension/hypovolemia, status post 1 L fluid resuscitation, resolved. Thoracic aortic aneurysm, ascending thoracic aorta measuring 4.1 cm with focal aneurysmal bulge of the proximal descending thoracic aorta distal to the thoracic aortic arch estimated at 1.8 cm in depth. Moderate size hiatal hernia. Elevated initial troponin, trending down. Atypical chest pain. History of hyperlipidemia. History of cocaine abuse. History of HIV. Chronic ongoing tobacco dependence. Plan: Plan dated June 26, 2024. The patient appears to be doing relatively well. The patient is seen today in room 255. He is resting comfortably in bed. He is on room air. He is not receiving any IV fluids. He is not having any chest pain, chest pressure, or any other chest complaints for that matter. In addition, he has had no further GI bleeding. Labs, x-rays, and all medications are reviewed. The patient is stable be transferred out of the intensive care unit. We will continue to follow and make recommendations where appropriate. Dictation was produced using [employer] software. Please excuse any grammatical, word or spelling err ors. Time with Patient: Less than 30
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
--- NOTE | 2024-06-26 12:39 | P.PN ---
Subjective Progress Note Date: 06/26/24 SURGICAL PROGRESS NOTE CHIEF COMPLAINT: GI bleed HISTORY OF PRESENT ILLNESS: Patient remains in the ICU. He has had no further melanotic stools. Hemoglobin did go down from 11.5-9.9. He denies any abdo fahad pain. Tolerated clear liquids. He is hungry and would like diet to be advanced. BP 99/59 HR 71 PHYSICAL EXAM: VITAL SIGNS: Reviewed. GENERAL: Well-developed in no acute distress. ABDOMEN: Soft. Nondistended. Nontender. NEUROLOGIC: Alert and oriented. Cranial nerves II through XII grossly intact. ASSESSMENT: 1. Upper GI bleed with status post EGD revealing erosive esophagitis, gas tritis, duodenitis and hiatal hernia PLAN: - Advance diet to regular - Continue PPI - Continue Carafate - Repeat EGD in 3 months Physician [employer] note has been reviewed by physician. Signing provider agrees with the documented findings, assessment, and plan of care. Objective - Vital Signs Vital signs: Vital Signs Temp 98.1 F 06/25/24 20:00 Pulse 71 06/26/24 04:00 Resp 17 06/26/24 04:00 BP 99/59 06/26/24 04:00 Pulse Ox 95 06/26/24 04:00 FiO2 Intake & Output 06/25/24 06/26/24 06/26/24 18:59 06:59 18:59 Intake Total 1575 225 Output Total 1575 850 Balance 0 -625 Weight 76.1 kg Intake: IV 300 225 Sodium Chloride 0.9% 1, 225 000 ml @ 75 mls/hr IV . [id number] JODY Rx#:[id number] Intake, IV Titration 1275 Amount Potassium Chloride 10 meq 600 In Water For Injection 1 100ml.bag @ 100 mls/hr IVPB Q1HR JODY Rx#: [id number] Sodium Chloride 0.9% 1, 675 000 ml @ 75 mls/hr IV . [id number] JODY Rx#:[id number] Output: Urine 1575 850 Other: # Voids 0 # Bowel Movements 0 - Labs CBC & Chem 7: 06/26/24 05:00 06/26/24 05:00 Labs: Abnormal Lab Results - Last 24 Hours (Table) 06/26/24 06/26/24 Range/Units 05:00 05:00 RBC 2.94 L (4.40-5.60) 10*6/uL Hgb 9.9 L D (13.0-17.0) g/dL Hct 28.5 L (39.6-50.0) % MCH 33.7 H (27.0-32.0) pg MPV 9.2 L (9.5-12.2) fL Immature Gran # 0.05 H (0.00-0.04) 10*3/uL Sodium 134 L (137-145) mmol/L Potassium 3.4 L (3.5-5.1) mmol/L Carbon Dioxide 21 L (22-30) mmol/L BUN 28 H (9-20) mg/dL Glucose 118 H (74-99) mg/dL Alkaline Phosphatase 36 L (38-126) U/L Total Protein 4.7 L (6.3-8.2) g/dL Albumin 2.7 L (3.5-5.0) g/dL
--- NOTE | 2024-06-26 13:48 | PN ---
PROGRESS NOTE He is admitted with pneumonia. Cardiology saw him. He has possibly aspiration pneumonia. Troponins were 0.04, 0.02, and 0.02. Cardiology stopped the Heparin. Borderline hypertensive. ASSESSMENT: 1. Chest pain, we are looking into GI source. 2. Non-ST elevation myocardial infarction type 2. 3. Gastrointestinal bleed. 4. Cocaine abuse. 5. Nicotine addiction. 6. Ascending aortic aneurysm, healed dissection. 7. GI bleeding and small amount of blood will have to be evaluated. Check hemoglobin, not a good interventional candidate at this point. Nicotine cessation, cocaine cessation, aspirin, blood pressure control. MMODL / IJN: [id number] /
[2024-06-26] MEDS: ONDANSETRON ODT 4 MG TAB PO PRN (18:03)
[2024-06-26] MEDS: ONDANSETRON 4 MG/2 ML VIAL IVP PRN (21:18)
[2024-06-27 08:13] LABS: ALT 12 U/L (10-49); AST 17 U/L (14-35); Albumin 3.2 g/dL (3.8-4.9); Albumin/Globulin Ratio 1.88 Ratio (1.60-3.17); Alkaline Phosphatase 43 U/L (41-126); Blood Urea Nitrogen 17.3 mg/dL (9.0-27.0); Calcium 8.3 mg/dL (8.7-10.3); Carbon Dioxide 22.9 mmol/L (21.6-31.8); Chloride 108 mmol/L (96-109); Globulin 1.7 g/dL (1.6-3.3); Glucose 92 mg/dL (70-110); Potassium 3.8 mmol/L (3.5-5.5); Sodium 139 mmol/L (135-145); Total Bilirubin 0.3 mg/dL (0.3-1.2); Total Protein 4.9 g/dL (6.2-8.2)
[2024-06-27 08:27] LABS: Basophils # (A) 0.06 X 10*3/uL (0.00-0.10); Basophils % (A) 1.1 %; Eosinophils # (A) 0.13 X 10*3/uL (0.04-0.35); Eosinophils % (A) 2.5 %; HCT 26.6 % (39.6-50.0); HGB 9.1 g/dL (13.0-17.0); Lymphocytes % (A) 22.8 %; MCH 32.9 pg (27.0-32.0); MCHC 34.2 g/dL (32.0-37.0); Mean Platelet Volume 9.3 FL (9.5-12.2); Monocytes # (A) 0.66 X 10*3/uL (0.20-1.00); Monocytes % (A) 12.5 %; NRBC Per 100 WBC 0 X 10*3/uL (0.00-0.01); Neutrophils # (A) 3.19 X 10*3/uL (1.80-7.70); Neutrophils % (A) 60.5 %; Platelet Count 178 X 10*3/uL (140-440); RBC 2.77 X 10*6/uL (4.40-5.60); RDW 12.9 % (11.5-14.5); WBC 5.27 X 10*3/uL (4.50-10.00)
[2024-06-27] MEDS: DOVATO PO SCH (09:38)
[2024-06-27] MEDS: ACETAMINOPHEN TAB 325 MG TAB PO PRN (09:54)
--- NOTE | 2024-06-27 11:04 | P.PN ---
Subjective Progress Note Date: 06/27/24 Patient is a 63-year-old male with past medical history significant for crack cocaine abuse, hyperlipidemia. Sent in from [place] with a chief complaint of chest pain yesterday morning. Per the patient he has had intractable nausea and vomiting that started on Monday. Reportedly dark-colored emesis. No alyssia blood. Reportedly, was taking daily 200 mg tab ibuprofen for chronic right hip pain. Workup in the emergency department including a chest CT angio did not show any acute pulmonary embolism. Remarkable for aneurysm dilation of the ascending thoracic aorta measuring 4.1 cm with focal aneurysmal bulge of the proximal descending thoracic aorta distal to the thoracic aortic arch estimated at 1.8 cm in depth. Also, moderate size hiatal hernia. Labs done on admission include a CBC with a WBC count of 15.7, hemoglobin 17, platelets 369. D-dimer was 1.6.. Most recent APTT 35.2. CMP: Sodium 135, potassium 4, chloride 100, serum bicarb 23, BUN 24, creatinine 1.15, glucose 139. LFTs not elevated. Serial troponins including 0.044, 0.024, and 0.021. NT proBNP 2320. Chest pain described as substernal, developed with his severe intractable nausea and vomiting and retching. Non-radiating. Denies lower extremity edema. Patient was previously started on IV heparin infusion. Rapid response called early this morning for large black stool liquid stool. Near syncopal event was reported with ambulation to the bathroom. Also, hypotension with reported blood pressures as low as 69/46 mmHg. 1 L fluid bolus was started during the rapid response. No further nausea or vomiting. Denies abdominal pain. I am told there is no GI coverage this week. General surgery consulted them. IV heparin has been stopped. Repeat labs are pending. Progress note dated June 26, 2024. 63-year-old male seen today in room 255. He is resting comfortably in bed. He is awake and alert. He is currently on room air. He is getting saline at 75 cc an hour, which can be discontinued. The patient could be transferred out to the general medical floor. He has been stable overnight. White count is 8.09, hemoglobin 9.9, hematocrit 28.5, and platelet count of 210,000. Sodium 134, potassium 3.4, chlorides 107, CO2 21, BUN 28, and creatinine 0.96. Glucose is 118. Albumin is 2.7. The patient is seen today June 27, 2024 in follow-up on the regular medical floor. He is currently resting comfortably in bed. Awake and alert in no acute distress. Maintaining good O2 saturations in the 90s on room air oxygen. He has been afebrile. Hemodynamically stable. White count 5.2. Hemoglobin 9.1. Platelets 178. Sodium 139. Potassium 3.8. Bicarb 23. BUN 17. Creatinine 1.0. Glucose 92. He remains on IV Protonix twice daily. Remains on Carafate. Objective - Vital Signs Vital signs: Vital Signs Temp 98.0 F 06/27/24 07:09 Pulse 64 06/27/24 07:09 Resp 16 06/27/24 07:09 BP 125/64 06/27/24 07:09 Pulse Ox 97 06/27/24 07:09 FiO2 Intake & Output 06/26/24 06/27/24 06/27/24 18:59 06:59 18:59 Output Total 1200 Balance -1200 Weight 76.5 kg Output: Urine 1200 Other: Voiding Method Toilet Urinal # Voids 2 - Exam GENERAL EXAM: Alert, active, 63-year-old male, on room air oxygen, resting in bed, comfortable in no apparent distress. HEAD: Normocephalic. EYES: Normal reaction of pupils, equal size. NOSE: Clear with pink turbinates. THROAT: No erythema or exudates. NECK: No masses, no JVD. CHEST: No chest wall deformity. LUNGS: Equal air entry with no crackles, wheeze, rhonchi or dullness. CVS: S1 and S2 normal with no audible murmur, regular rhythm. ABDOMEN: No hepatosplenomegaly, normal bowel sounds, no guarding or rigidity. SPINE: No scoliosis or deformity SKIN: No rashes CENTRAL NERVOUS SYSTEM: No focal deficits, tone is normal in all 4 extremities. EXTREMITIES: There is no peripheral edema. No clubbing, no cyanosis. Peripheral pulses are intact. - Labs CBC & Chem 7: 06/27/24 04:57 06/27/24 04:57 Labs: Abnormal Lab Results - Last 24 Hours (Table) 06/27/24 06/27/24 Range/Units 04:57 04:57 RBC 2.77 L (4.40-5.60) X 10*6/uL Hgb 9.1 L (13.0-17.0) g/dL Hct 26.6 L (39.6-50.0) % MCH 32.9 H (27.0-32.0) pg MPV 9.3 L (9.5-12.2) FL Calcium 8.3 L (8.7-10.3) mg/dL Total Protein 4.9 L (6.2-8.2) g/dL Albumin 3.2 L (3.8-4.9) g/dL Assessment and Plan Assessment: Upper GI bleed status post EGD, June 25, 2024, revealing erosive esophagitis, gastritis, duodenitis and hiatal hernia Acute blood loss anemia, secondary to above. Did not require any blood transfusions Symptomatic hypotension/hypovolemia, status post 1 L fluid resuscitation, resolved. Thoracic aortic aneurysm, ascending thoracic aorta measuring 4.1 cm with focal aneurysmal bulge of the proximal descending thoracic aorta distal to the thoracic aortic arch estimated at 1.8 cm in depth. Moderate size hiatal hernia. Elevated initial troponin, trending down. Atypical chest pain. History of hyperlipidemia. History of cocaine abuse. History of HIV. Chronic ongoing tobacco dependence. Plan: The patient was seen and evaluated Labs and medications reviewed EGD results reviewed Currently on Protonix IV twice daily Stable and on room air oxygen Plan is to return to [place] at discharge I have personally seen and examined the patient, performed the documentation and the assessment and plan as written. Number of minutes spent on the visit: 10 Dictation was produced using [employer] dictation software. Please excuse any grammatical, word or spelling errors.
--- NOTE | 2024-06-27 13:24 | P.PN ---
Subjective Progress Note Date: 06/27/24 SURGICAL PROGRESS NOTE CHIEF COMPLAINT: GI bleed HISTORY OF PRESENT ILLNESS: Patient was transferred. Has had no melanotic stools. He did have 1 episode of vomiting yesterday after dinner. Patient repo rts he had eaten beef with onions that did not settle. He was able to tolerate eggs, serrano and cereal this morning. He denies any abdominal pain. Hemoglobin stable at 9.1 PHYSICAL EXAM: VITAL SIGNS: Reviewed. GENERAL: Well-developed in no acute distress. ABDOMEN: Soft. Nondistended. Nontender. NEUROLOGIC: Alert and oriented. Cranial nerves II through XII grossly intact. ASSESSMENT: 1. Upper GI bleed with status post EGD revealing erosive esophagitis, gastritis, duodenitis and hiatal hernia PLAN: - Continue regular diet - Continue PPI - Continue Carafate - Repeat EGD in 3 months [employer]ician [employer] note has been reviewed by physician. Signing provider agrees with the documented findings, assessment, and plan of care. I have personally seen and examined the patient, reviewed the [employer] /PAs history, exam and MDM and agree with the assessment and plan as written. Based on total visit time, I have performed more than 50% of the visit. As above: Patient doing well today. Had some vomiting last night. He did eat breakfast and lunch and kept it down nicely. Hemoglobin stable and no further stools to suggest any active bleeding. Continue antiacids. Stable for discharge from my standpoint. 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 Patient believes that he was already going to see him for a EGD anyhow in the near future. Will sign off. Please reconsult if needed. Objective - Vital Signs Vital signs: Vital Signs Temp 98.0 F 06/27/24 07:09 Pulse 64 06/27/24 11:25 Resp 16 06/27/24 11:25 BP 125/64 06/27/24 07:09 Pulse Ox 97 06/27/24 07:09 FiO2 Intake & Output 06/26/24 06/27/24 06/27/24 18:59 06:59 18:59 Output Total 1200 Balance -1200 Weight 76.5 kg Output: Urine 1200 Other: Voiding Method Toilet Toilet Urinal Urinal # Voids 2 - Labs CBC & Chem 7: 06/27/24 04:57 06/27/24 04:57 Labs: Abnormal Lab Results - Last 24 Hours (Table) 06/27/24 06/27/24 Range/Units 04:57 04:57 RBC 2.77 L (4.40-5.60) X 10*6/uL Hgb 9.1 L (13.0-17.0) g/dL Hct 26.6 L (39.6-50.0) % MCH 32.9 H (27.0-32.0) pg MPV 9.3 L (9.5-12.2) FL Calcium 8.3 L (8.7-10.3) mg/dL Total Protein 4.9 L (6.2-8.2) g/dL Albumin 3.2 L (3.8-4.9) g/dL
[2024-06-28 02:48] VITALS: TEMP 98.3
--- NOTE | 2024-06-28 05:27 | P.PN ---
Subjective Progress Note Date: 06/27/[address] Keyon Cota This is a pleasant 63-year-old male who was recently at [facility] for polysubstance abuse with crack cocaine and developed some concerns of chest pain and also possible GI bleeding. Patient is status post EGD revealing erosive esophagitis, gastritis, duodenitis and hiatal hernia. Patient did have an episode of vomiting last night and recommend monitoring for improvements in diet as patient will be returning to [facility] prior to discharge. Patient to continue with Protonix with no active bleeding noted and will continue Carafate and diet is being advanced. Patient reports he did eat breakfast this morning and has currently held it down. Patient has been up and walking frequently around the halls and continued to encouraged to do so. Possible discharge planning in 24 hours. Hemoglobin is 9.1 today. Review of systems: Constitutional: No reports of fatigue, fever, or chills Cardiovascular: No reports of chest pain or palpitations Respiratory: No reports of shortness of breath or cough GI: reports of nausea with 1 episode of vomiting last night, no further reports of vomiting today, denies diarrhea : No reports of dysuria or retention Neurovascular: No reports of generalized weakness All medications have been reviewed PHYSICAL EXAMINATION: GENERAL: The patient is alert and oriented x4, Well developed, thin built HEENT: Pupils are round and equally reacting to light. EOMI. no scleral icterus. No conjunctival pallor. Normocephalic, atraumatic. No pharyngeal erythema. No thyromegaly. CARDIOVASCULAR: S1 and S2 muffled PULMONARY: diminished breath sounds bilaterally with no wheezing or rhonchi noted. ABDOMEN: soft. Nontender on exam. Thin. Non-distended, normoactive bowel sounds. No palpable organomegaly. MUSCULOSKELETAL: No joint swelling or deformity. EXTREMITIES: No cyanosis, clubbing, or pedal edema. NEUROLOGICAL: Gross neurological examination did not reveal any focal deficits. Gait steady on exam SKIN: No rashes. Assessment: Upper GI bleed, present on admission, status post EGD revealing gastritis, erosive esophagitis, duodenitis, and hiatal hernia Chest pain, ruled out ACS, with minimally elevated troponin likely secondary to NSTEMI likely type II History of crack cocaine abuse, currently at [facility] for inpatient rehab History of ascending aortic aneurysm with an outpouching noted, likely healed dissection History of HIV with AIDS Continued ongoing nicotine use GI prophylaxis DVT prophylaxis Full code Plan: Recommend to continue with current medications and management per general s urgery. Monitor overnight for improvements and tolerance of diet this patient did have an episode of vomiting Hemoglobin is 8.1 with no active bleeding noted, continue Protonix and Carafate Encouraged increased activity as tolerated. Patient has been walking the halls frequently Encouraged the patient to discuss with case management and [facility] about returning to continue with inpatient rehab Plan for discharge planning in the next 24 hours to [facility]. Patient does have a director payer outpatient in the [facility] where he resides and will need follow-up on discharge. Recommend repeat endoscopy in the next 3 months per general surgery during this hospitalization. The impression and plan of care has been dictated by Ashley Hale, nurse practitioner as directed. Dr. Naresh MD I have performed a history and examination and MDM of this patient, discussed the same with the dictator, and agree with the dictator's assessment and plan as written ,documented as a scribe. Based on total visit time, I have performed more than 50% of the visit. Any additional findings or plans will be noted. Objective - Vital Signs Vital signs: Vital Signs Temp 98.0 F 06/27/24 07:09 Pulse 64 06/27/24 07:09 Resp 16 06/27/24 07:09 BP 125/64 06/27/24 07:09 Pulse Ox 97 06/27/24 07:09 FiO2 Intake & Output 06/26/24 06/27/24 06/27/24 18:59 06:59 18:59 Output Total 1200 Balance -1200 Weight 76.5 kg Output: Urine 1200 Other: Voiding Method Toilet Urinal # Voids 2 - Labs CBC & Chem 7: 06/27/24 04:57 06/27/24 04:57 Labs: Abnormal Lab Results - Last 24 Hours (Table) 06/27/24 06/27/24 Range/Units 04:57 04:57 RBC 2.77 L (4.40-5.60) X 10*6/uL Hgb 9.1 L (13.0-17.0) g/dL Hct 26.6 L (39.6-50.0) % MCH 32.9 H (27.0-32.0) pg MPV 9.3 L (9.5-12.2) FL Calcium 8.3 L (8.7-10.3) mg/dL Total Protein 4.9 L (6.2-8.2) g/dL Albumin 3.2 L (3.8-4.9) g/dL
[2024-06-28] MEDS: PANTOPRAZOLE 40 MG TABLET PO SCH (06:21)
[2024-06-28 07:38] VITALS: BP 100/59; PULSE 64; RESP 20
--- NOTE | 2024-06-28 11:01 | P.PN ---
Subjective Progress Note Date: 06/28/24 Patient is a 63-year-old male with past medical history significant for crack cocaine abuse, hyperlipidemia. Sent in from [place] with a chief complaint of chest pain yesterday morning. Per the patient he has had intractable nausea and vomiting that started on Monday. Reportedly dark-colored emesis. No alyssia blood. Reportedly, was taking daily 200 mg tab ibuprofen for chronic right hip pain. Workup in the emergency department including a chest CT angio did not show any acute pulmonary embolism. Remarkable for aneurysm dilation of the ascending thoracic aorta measuring 4.1 cm with focal aneurysmal bulge of the proximal descending thoracic aorta distal to the thoracic aortic arch estimated at 1.8 cm in depth. Also, moderate size hiatal hernia. Labs done on admission include a CBC with a WBC count of 15.7, hemoglobin 17, platelets 369. D-dimer was 1.6.. Most recent APTT 35.2. CMP: Sodium 135, potassium 4, chloride 100, serum bicarb 23, BUN 24, creatinine 1.15, glucose 139. LFTs not elevated. Serial troponins including 0.044, 0.024, and 0.021. NT proBNP 2320. Chest pain described as substernal, developed with his severe intractable nausea and vomiting and retching. Non-radiating. Denies lower extremity edema. Patient was previously started on IV heparin infusion. Rapid response called early this morning for large black stool liquid stool. Near syncopal event was reported with ambulation to the bathroom. Also, hypotension with reported blood pressures as low as 69/46 mmHg. 1 L fluid bolus was started during the rapid response. No further nausea or vomiting. Denies abdominal pain. I am told there is no GI coverage this week. General surgery consulted them. IV heparin has been stopped. Repeat labs are pending. Progress note dated June 26, 2024. 63-year-old male seen today in room 255. He is resting comfortably in bed. He is awake and alert. He is currently on room air. He is getting saline at 75 cc an hour, which can be discontinued. The patient could be transferred out to the general medical floor. He has been stable overnight. White count is 8.09, hemoglobin 9.9, hematocrit 28.5, and platelet count of 210,000. Sodium 134, potassium 3.4, chlorides 107, CO2 21, BUN 28, and creatinine 0.96. Glucose is 118. Albumin is 2.7. The patient is seen today June 27, 2024 in follow-up on the regular medical floor. He is currently resting comfortably in bed. Awake and alert in no acute distress. Maintaining good O2 saturations in the 90s on room air oxygen. He has been afebrile. Hemodynamically stable. White count 5.2. Hemoglobin 9.1. Platelets 178. Sodium 139. Potassium 3.8. Bicarb 23. BUN 17. Creatinine 1.0. Glucose 92. He remains on IV Protonix twice daily. Remains on Carafate. The patient is seen today June 28, 2024 in follow-up on the regular medical floor. He is awake and alert in no acute distress. Maintaining O2 saturations in the 90s on room air oxygen. He was still having some issues with nausea and vomiting yesterday. He was able to tolerate his breakfast today. No bleeding noted. No new labs today. EGD biopsy revealed acute erosive esophagitis but no malignancy. Objective - Vital Signs Vital signs: Vital Signs Temp 98.3 F 06/28/24 07:00 Pulse 64 06/28/24 07:00 Resp 20 06/28/24 07:00 BP 100/59 06/28/24 07:00 Pulse Ox 95 06/28/24 07:00 FiO2 Intake & Output 06/27/24 06/28/24 06/28/24 18:59 06:59 18:59 Intake Total 600 480 Balance 600 480 Weight 72.5 kg Intake: Oral 600 480 Other: Voiding Method Toilet Toilet Urinal Urinal # Voids 3 4 - Exam GENERAL EXAM: Alert, 63-year-old male, on room air oxygen, resting in bed, in no apparent distress. HEAD: Normocephalic. EYES: Normal reaction of pupils, equal size. NOSE: Clear with pink turbinates. THROAT: No erythema or exudates. NECK: No masses, no JVD. CHEST: No chest wall deformity. LUNGS: Equal air entry with no crackles, wheeze, rhonchi or dullness. CVS: S1 and S2 normal with no audible murmur, regular rhythm. ABDOMEN: No hepatosplenomegaly, normal bowel sounds, no guarding or rigidity. SPINE: No scoliosis or deformity SKIN: No rashes CENTRAL NERVOUS SYSTEM: No focal deficits, tone is normal in all 4 extremities. EXTREMITIES: There is no peripheral edema. No clubbing, no cyanosis. Peripheral pulses are intact. - Labs CBC & Chem 7: 06/27/24 04:57 06/27/24 04:57 Assessment and Plan Assessment: Upper GI bleed status post EGD, June 25, 2024, revealing erosive esophagitis, gastritis, duodenitis and hiatal hernia. Negative for malignancy Acute blood loss anemia, secondary to above. Did not require any blood transfusions Symptomatic hypotension/hypovolemia, status post 1 L fluid resuscitation, resolved. Thoracic aortic aneurysm, ascending thoracic aorta measuring 4.1 cm with focal aneurysmal bulge of the proximal descending thoracic aorta distal to the thoracic aortic arch estimated at 1.8 cm in depth. Moderate size hiatal hernia. Elevated initial troponin, trending down. Atypical chest pain. History of hyperlipidemia. History of cocaine abuse. Presented here from [facility] History of HIV. Chronic ongoing tobacco dependence. Plan: The patient was seen and evaluated Medications reviewed EGD biopsy pathology reviewed Currently on oral Protonix Stable and on room air oxygen Plan of care discussed with the patient Educated regarding smoking cessation Plan is to return to [facility] at discharge This patient was seen independently by the pulmonary nurse practitioner addressing pulmonary/critical care issues I have personally seen and examined the patient, performed the documentation and the assessment and plan as written. Number of minutes spent on the visit: 24 Dictation was produced using [employer] dictation software. Please excuse any grammatical, word or spelling errors.
--- NOTE | 2024-06-30 11:53 | P.DS ---
Providers Date of admission: 06/24/24 10:39 Expected date of discharge: 06/30/24 Attending physician: Keyon Cota Consults: 06/25/24 06:16 Consult Physician Routine Consulting Provider: Willem Xavier Consult Reason/Comments: ICU management / GI bleed Do you want consulting provider notified?: Already Contacted Primary care physician: Physician Nonstaff Hospital Course: Final diagnosis Upper GI bleed, present on admission, status post EGD revealing gastritis, erosive esophagitis, duodenitis, and hiatal hernia Chest pain, ruled out ACS, with minimally elevated troponin likely secondary to NSTEMI likely type II History of crack cocaine abuse, currently at [place] for inpatient rehab History of ascending aortic aneurysm with an outpouching noted, likely healed dissection History of HIV with AIDS Continued ongoing nicotine use GI prophylaxis DVT prophylaxis Full code Discharge disposition Patient is being discharged in a stable condition with guarded prognosis to [facility] to continue with inpatient rehab. Patient will follow-up with his primary care provider in the outpatient setting upon discharge. Patient is to continue with outpatient follow-up with general surgery and/or GI as scheduled. Total time taken is greater than 35 minutes. Hospital course This is a 63-year-old male who was recently admitted with concerns of upper GI bleed along with chest pain being closely monitored. Troponins likely type II secondary to mismatch and patient is status post EGD revealing gastritis, erosive adjusted lightest, duodenitis with a noted hiatal hernia. Patient to follow-up with general surgery in the outpatient setting. Patient was at [facility] for continued drug rehab and would like to return there. Patient is tolerating diet no further bleeding noted and hemoglobin is stable. Patient has been cleared by consultations. Please refer to consultation notes for further HPI. Currently no reports of chest pain, shortness of breath, or palpitations. Patient is afebrile. No reports of nausea or vomiting and patient is tolerating diet. Patient will be discharged to [facility] [place] today. Physical exam: Gen: This is a 63-year-old male who is awake, alert oriented x 3, thin built, well-developed HEENT: Head is atraumatic, normocephalic. Pupils equal, round. Sclerae is anicteric. NECK: Supple. No JVD. No lymphadenopathy. No thyromegaly. LUNGS: Clear to auscultation. No wheezes or rhonchi. No intercostal retractions. HEART: Regular rate and rhythm. No murmur. ABDOMEN: Soft. Bowel sounds are present. No masses. No tenderness. EXTREMITIES: No pedal edema. No calf tenderness. NEUROLOGICAL: Patient is awake, alert and oriented x3. Cranial nerves 2 through 12 are grossly intact. Please refer to medication reconciliation sheet for a list of medications. The impression and plan of care has been dictated by Ashley Hale, Nurse Practitioner as directed. Dr. Naresh MD I have performed a history and examination and MDM of this patient, discussed the same with the dictator, and agree with the dictator's assessment and plan as written ,documented as a scribe. Based on total visit time, I have performed more than 50% of the visit. Patient Condition at Discharge: Fair Plan - Discharge Summary Discharge Rx Participant: No New Discharge Prescriptions: New Omeprazole [PriLOSEC] 20 mg PO AC-BRKFST #90 cap Sucralfate [Carafate] 1 gm PO AC-TID #90 tab Continue Thiamine [Vitamin B-1] 100 mg PO DAILY Multivitamins, Thera [Multivitamin (formulary)] 1 tab PO DAILY Ibuprofen [Motrin Ib] 600 mg PO Q6H PRN PRN Reason: Pain traZODone HCL [Desyrel] 100 mg PO HS Rosuvastatin [Crestor] 10 mg PO HS buPROPion XL [Wellbutrin XL] 300 mg PO DAILY Dolutegravir Sodium/Lamivudine [Dovato 50-300 mg Tablet] 1 tab PO DAILY ondansetron HCL [Zofran] 8 mg PO Q6H PRN PRN Reason: Nausea And Vomiting Aspirin 325 mg PO ONCE Acetaminophen [Tylenol] 650 mg PO Q4H PRN PRN Reason: Pain Calcium Phos/D3/Magnesium/Zinc [Niwkvbb-Lhw-Ovov-Vitamin D3] 1 tab PO TID PRN PRN Reason: Supplement [place]-3 Acid Ethyl Esters [Lovaza] 2 gm PO BID-W/MEALS Discharge Medication List Acetaminophen [Tylenol] 650 mg PO Q4H PRN 06/24/24 [History] Aspirin 325 mg PO ONCE 06/24/24 [History] Calcium Phos/D3/Magnesium/Zinc [Meblitz-Krf-Ixmi-Vitamin D3] 1 tab PO TID PRN 06/24/24 [History] Dolutegravir Sodium/Lamivudine [Dovato 50-300 mg Tablet] 1 tab PO DAILY 06/24/24 [History] Ibuprofen [Motrin Ib] 600 mg PO Q6H PRN 06/24/24 [History] Multivitamins, Thera [Multivitamin (formulary)] 1 tab PO DAILY 06/24/24 [History] [place]-3 Acid Ethyl Esters [Lovaza] 2 gm PO BID-W/MEALS 06/24/24 [History] Rosuvastatin [Crestor] 10 mg PO HS 06/24/24 [History] Thiamine [Vitamin B-1] 100 mg PO DAILY 06/24/24 [History] buPROPion XL [Wellbutrin XL] 300 mg PO DAILY 06/24/24 [History] ondansetron HCL [Zofran] 8 mg PO Q6H PRN 06/24/24 [History] traZODone HCL [Desyrel] 100 mg PO HS 06/24/24 [History] Omeprazole [PriLOSEC] 20 mg PO AC-BRKFST #90 cap 06/27/24 [Rx] Sucralfate [Carafate] 1 gm PO AC-TID #90 tab 06/28/24 [Rx] Follow up Appointment(s)/Referral(s): Nonstaff,Physician [Primary Care Provider] - 1-2 days [facility] [NON-STAFF] - 1 Week Activity/Diet/Wound Care/Special Instructions: Patient is returning to [place] Activity as tolerated Patient to follow-up with GI outpatient Patient to follow-up with primary care provider on discharge Continue taking medications as prescribed Discharge Disposition: OTHER INSTITUTION NOT DEFINED
== END 2024-06-28 13:45 | DRG 377 ==
LOC: EC 08:44 → 6NMEDSUR 10:38 → OBSVTOIN 10:39 → 6NMEDSUR 12:30 → 2SICU 06-25 06:11 → 4SSUR 06-26 15:28
PROVIDERS: ADMIT Family Medicine; ATTEND Family Medicine
PROC: HZ2ZZZZ Detoxification Services for Substance Abuse Treatment (ICD-10-PCS; 2024-06-24)
PROC: 0DB68ZX Excision of Stomach, Via Natural or Artificial Opening Endoscopic, Diagnostic (ICD-10-PCS; 2024-06-25)
PROC: 0DB58ZX Excision of Esophagus, Via Natural or Artificial Opening Endoscopic, Diagnostic (ICD-10-PCS; 2024-06-25)
PROC: 0DB98ZX Excision of Duodenum, Via Natural or Artificial Opening Endoscopic, Diagnostic (ICD-10-PCS; principal; 2024-06-25 07:30)
DX: K29.81 Duodenitis with bleeding (principal); I21.A1 Myocardial infarction type 2; J18.9 Pneumonia, unspecified organism; B20 Human immunodeficiency virus [HIV] disease; K22.11 Ulcer of esophagus with bleeding; J44.0 Chronic obstructive pulmonary disease with (acute) lower respiratory infection; F14.10 Cocaine abuse, uncomplicated; F32.A Depression, unspecified; F10.10 Alcohol abuse, uncomplicated; I71.21 Aneurysm of the ascending aorta, without rupture; D62 Acute posthemorrhagic anemia; K44.9 Diaphragmatic hernia without obstruction or gangrene; E78.5 Hyperlipidemia, unspecified; F17.210 Nicotine dependence, cigarettes, uncomplicated; F41.9 Anxiety disorder, unspecified; K29.70 Gastritis, unspecified, without bleeding; K29.80 Duodenitis without bleeding; D75.1 Secondary polycythemia; E86.1 Hypovolemia; G89.29 Other chronic pain; Z79.899 Other long term (current) drug therapy; I95.9 Hypotension, unspecified; Z87.19 Personal history of other diseases of the digestive system; Z88.0 Allergy status to penicillin; Z71.6 Tobacco abuse counseling; Z86.14 Personal history of Methicillin resistant Staphylococcus aureus infection
CPT/HCPCS: 36415; 43239; 71046; 71250; 71275; 80048; 80053; 80061; 83735; 83880; 84132; 84484; 85025; 85027; 85379; 85610; 85730; 86850; 86900; 86901; 88305; 88312; 93005; 93306; 96361; 96365; 96366; 99291

== ENCOUNTER 2024-07-04 07:16 | Emergency (ER) | payer MEDICARE, OTHER ==
[2024-07-04 07:50] LABS: Basophils # (A) 0.02 10*3/uL (0.00-0.10); Basophils % (A) 0.2 %; Eosinophils # (A) 0.07 10*3/uL (0.04-0.35); Eosinophils % (A) 0.7 %; HCT 33.4 % (39.6-50.0); HGB 11.3 g/dL (13.0-17.0); Lymphocytes # (A) 0.63 10*3/uL (0.90-5.00); MCH 32.7 pg (27.0-32.0); MCHC 33.8 g/dL (32.0-37.0); MCV 96.5 fL (80.0-97.0); Mean Platelet Volume 9.1 fL (9.5-12.2); Monocytes # (A) 0.36 10*3/uL (0.20-1.00); Monocytes % (A) 3.5 %; Neutrophils # (A) 9.26 10*3/uL (1.80-7.70); Neutrophils % (A) 88.8 %; Platelet Count 303 10*3/uL (140-440); RBC 3.46 10*6/uL (4.40-5.60); RDW 13.5 % (11.5-14.5); WBC 10.42 10*3/uL (4.50-10.00)
[2024-07-04] MEDS: SODIUM CHLORIDE 0.9% 1,000 ML IV ONE (07:53)
[2024-07-04 07:58] LABS: Prothrombin Time 11.4 sec (10.0-12.5)
[2024-07-04 08:01] LABS: ALT 24 U/L (4-49); African American GFR (CKD) >90 (>60 ml/min/1.73 sqM); Anion Gap 9 mmol/L; Blood Urea Nitrogen 16 mg/dL (9-20); Calcium 9.1 mg/dL (8.4-10.2); Carbon Dioxide 26 mmol/L (22-30); Chloride 106 mmol/L (98-107); Glucose 105 mg/dL (74-99); Lipase 30 U/L (23-300); Non-African American GFR(CKD) >90 (>60 ml/min/1.73 sqM); Sodium 141 mmol/L (137-145); Total Bilirubin 0.7 mg/dL (0.2-1.3); Total Protein 6.5 g/dL (6.3-8.2)
[2024-07-04 08:06] LABS: AST 41 U/L (17-59); Alkaline Phosphatase 52 U/L (38-126); Potassium 4.1 mmol/L (3.5-5.1)
[2024-07-04] MEDS: FAMOTIDINE 20 MG/2 ML VIAL IV STA (09:06)
[2024-07-04] MEDS: PANTOPRAZOLE 40 MG/10 ML VIAL IVP ONE (09:08)
--- NOTE | 2024-07-04 09:08 | XR ---
EXAMINATION TYPE: XR KUB DATE OF EXAM: 07/04/2024 8:58 AM COMPARISON: None. CLINICAL INDICATION: Male, 63 years old with history of abd pain, nausea vomiting diarrhea TECHNIQUE: XR KUB view(s) obtained. FINDINGS: There are multiple air-fluid levels present now which may be colonic. Differential air-fluid levels a re not identified. Correlate for gastroenteritis. Psoas margins are normal. No organomegaly is present. IMPRESSION: 1. Clinical correlation for gastroenteritis. Follow up exams can be performed as clinically indicated . [facility], , 07/04/2024 9:06 AM
[2024-07-04 12:15] LABS: Appearance,Urine Clear (Clear); Bilirubin,Urine Negative (Negative); Blood,Urine Negative (Negative); Color,Urine Yellow; Glucose,Urine (UA) Negative (Negative); Ketones,Urine Negative (Negative); Leukocyte Esterase,Urine Negative (Negative); Mucus,Urine Occasional /hpf; Nitrite,Urine Negative (Negative); Protein,Urine Negative (Negative); Specific Gravity,Urine 1.027 (1.001-1.035); Squamous Epithelial Cell,Urine <1 /hpf (0-4); Urobilinogen,Urine <2.0 mg/dL (<2.0); WBC,Urine 1 /hpf (0-5)
--- NOTE | 2024-07-04 12:45 | ED ---
Abdominal Pain HPI - General Chief Complaint: Abdominal Pain Stated Complaint: NVD Time Seen by Provider: 07/04/24 07:20 Source: patient, EMS Mode of arrival: EMS Limitations: no limitations - History of Present Illness Initial Comments: 63-year-old male presents to the emergency department from [place]. Patient was just recently hospitalized. Coming in today with nausea, vomiting and diarrhea. Has some generalized abdominal pain from heaving. Patient was recently here and discharged on the . He was treated for a GI bleed which demonstrated gastritis. Patient denies having any hematemesis. No black or bloody stools. Reports that he does have several sick contacts at [place] that have the same complaint. He does have Zofran ordered for nausea. Patient has not used any substances in greater than a week due to being in rehab as well as hospitalized. He denies any chest pain or difficulty breathing. No other a lleviating, precipitating or modifying factors - Related Data Home Medications Medication Instructions Recorded Confirmed Acetaminophen [Tylenol] 650 mg PO Q4H PRN 06/24/24 07/04/24 Aspirin 325 mg PO ONCE 06/24/24 07/04/24 Calcium Phos/D3/Magnesium/Zinc 1 tab PO TID PRN 06/24/24 07/04/24 [Envbckv-Wij-Fbkq-Vitamin D3] Dolutegravir Sodium/Lamivudine 1 tab PO DAILY 06/24/24 07/04/24 [Dovato 50-300 mg Tablet] Ibuprofen [Motrin Ib] 600 mg PO Q6H PRN 06/24/24 07/04/24 Multivitamins, Thera [Multivitamin 1 tab PO DAILY 06/24/24 07/04/24 (formulary)] [place]-3 Acid Ethyl Esters [Lovaza] 2 gm PO BID-W/MEALS 06/24/24 07/04/24 Rosuvastatin [Crestor] 10 mg PO HS 06/24/24 07/04/24 Thiamine [Vitamin B-1] 100 mg PO DAILY 06/24/24 07/04/24 buPROPion XL [Wellbutrin XL] 300 mg PO DAILY 06/24/24 07/04/24 ondansetron HCL [Zofran] 8 mg PO Q6H PRN 06/24/24 07/04/24 traZODone HCL [Desyrel] 100 mg PO HS 06/24/24 07/04/24 Chlorpheniramine Maleate 4 mg PO Q4H PRN 07/04/24 07/04/24 [Chlor-Trimeton] guaiFENesin SYRUP 100MG/5ML 200 mg PO Q4H PRN 07/04/24 07/04/24 [Robitussin] Previous Rx's Medication Instructions Recorded Omeprazole [PriLOSEC] 20 mg PO AC-BRKFST #90 cap 06/27/24 Sucralfate [Carafate] 1 gm PO AC-TID #90 tab 06/28/24 Diphenoxylate HCl/Atropine 1 tab PO QID PRN #24 tab 07/04/24 [Lomotil 2.5-0.025 mg Tablet] Metoclopramide [Reglan] 10 mg PO TID PRN #30 tab 07/04/24 Allergies Allergy/AdvReac Type Severity Reaction Status Date / Time Penicillins Allergy Rash/Hives Verified 07/04/24 11:30 Review of Systems ROS Statement: Those systems with pertinent positive or pertinent negative responses have been documented in the HPI. ROS Other: All systems not noted in ROS Statement are negative. Past Medical History Past Medical History: Chest Pain / Angina Additional Past Medical History / Comment(s): crack cocaine abuse History of Any Multi-Drug Resistant Organisms: MRSA Date of last positivie culture/infection: 2004 MDRO Source:: treatment center Past Surgical History: Orthopedic Surgery Additional Past Surgical History / Comment(s): L mastoidectomy, open reduction L tibia. jaw wired shut, hemroidectomy Past Psychological History: Anxiety, Depression Smoking Status: Current every day smoker Past Alcohol Use History: Occasional Past Drug Use History: Cocaine, Marijuana General Exam Limitations: no limitations General appearance: alert, in no apparent distress Head exam: Present: atraumatic, normocephalic, normal inspection Eye exam: Present: normal appearance, PERRL, EOMI. Absent: scleral icterus, conjunctival injection, periorbital swelling ENT exam: Present: normal exam, mucous membranes moist Neck exam: Present: normal inspection. Absent: tenderness, meningismus, lymphadenopathy Respiratory exam: Present: normal lung sounds bilaterally. Absent: respiratory distress, wheezes, rales, rhonchi, stridor Cardiovascular Exam: Present: regular rate, normal rhythm, normal heart sounds. Absent: systolic murmur, diastolic murmur, rubs, gallop, clicks GI/Abdominal exam: Present: soft, normal bowel sounds. Absent: distended, tenderness, guarding, rebound, rigid Extremities exam: Present: normal inspection, full ROM, normal capillary refill. Absent: tenderness, pedal edema, joint swelling, calf tenderness Back exam: Present: normal inspection Neurological exam: Present: alert, oriented X3, CN II-XII intact Psychiatric exam: Present: normal affect, normal mood Skin exam: Present: warm, dry, intact, normal color. Absent: rash Course Vital Signs 07/04/24 07/04/24 07/04/24 07:18 09:33 11:24 Temperature 98.7 F 97.6 F Pulse Rate 79 71 67 Respiratory 18 18 20 Rate Blood Pressure 126/76 133/79 132/76 O2 Sat by Pulse 96 98 99 Oximetry 07/04/24 14:36 Temperature 97.8 F Pulse Rate 65 Respiratory 18 Rate Blood Pressure 132/78 O2 Sat by Pulse 98 Oximetry Medical Decision Making - Medical Decision Making Was pt. sent in by a medical professional or institution (, PA, [employer], urgent care, hospital, or retirement...) When possible be specific @ -Patient was sent in from [place] Did you speak to anyone other than the patient for history (EMS, parent, family, police, friend...)? What history was obtained from this source @ -I spoke with EMS for the history Did you review nursing and triage notes (agree or disagree)? Why? @ -I reviewed and agree with nursing and triage notes Were old charts reviewed (outside hosp., previous admission, EMS record, old EKG, old radiological studies, urgent care reports/EKG's, retirement records)? Report findings @ -I reviewed the discharge summary from June 28 when the patient was seen and evaluated for a GI bleed Differential Diagnosis (chest pain, altered mental status, abdominal pain women, abdominal pain men, vaginal bleeding, weakness, fever, dyspnea, syncope, heada sonia, dizziness, GI bleed, back pain, seizure, CVA, palpatations, mental health, musculoskeletal)? @ -Differential Abdominal Pain Men: Appendicitis, cholecystitis, diverticulosis, ischemic bowel, pancreatitis, hepatitis, UTI, gastroenteritis, AAA, incarcerated hernia, bowel obstruction, constipation, inflammatory bowel, hepatitis, peptic ulcer disease, splenic infarction, perforated viscus, testicular torsion, this is not meant to be an all-inclusive list EKG interpreted by me (3pts min.). @ -Yes and demonstrates sinus rhythm with a rate of 73. WA interval 216. QRS 96. QTc of 433. No acute ST segment elevations or depressions X-rays interpreted by me (1pt min.). @ -Yes which demonstrates possible gastroenteritis CT interpreted by me (1pt min.). @ -None done U/S interpreted by me (1pt. min.). @ -None done What testing was considered but not performed or refused? (CT, X-rays, U/S, labs)? Why? @ -None What meds were considered but not given or refused? Why? @ -None Did you discuss the management of the patient with other professionals (professionals i.e. , PA, [employer], lab, RT, psych nurse, social media marketing manager, production team manager, teacher, credit administration officer, rn case manager)? Give summary @ -No Was smoking cessation discussed for >3mins.? @ -No Was critical care preformed (if so, how long)? @ -No Were there social determinants of health that impacted care today? How? (Homelessness, low income, unemployed, alcoholism, drug addiction, transportation, low edu. Level, literacy, decrease access to med. care, long term, rehab)? @ -Patient is currently in rehab Was there de-escalation of care discussed even if they declined (Discuss DNR or withdrawal of care, Hospice)? DNR status @ -No What co-morbidities impacted this encounter? (DM, HTN, Smoking, COPD, CAD, Cancer, CVA, ARF, Chemo, Hep., AIDS, mental health diagnosis, sleep apnea, morbid obesity)? @ -GI bleed Was patient admitted / discharged? Hospital course, mention meds given and route, prescriptions, significant lab abnormalities, going to OR and other pertinent info. @ -Upon arrival patient seen and evaluated in room 16. Thorough history and physical exam was performed. IV was established. Laboratory studies are con ducted. Patient reports that he received Zofran and the nausea has improved. I did give him Protonix, Pepcid and a liter bolus of normal saline. Patient was reevaluated and resting comfortably. He is able to tolerate oral intake. At this time I do feel that the patient is stable for transfer back to rehab. He is given a note to take today off of activity. Instructed her to follow-up with his doctor and return for any new or worsening symptoms. Patient was agreeable to this plan he was discharged back to [place] in stable condition Undiagnosed new problem with uncertain prognosis? @ -No Drug Therapy requiring intensive monitoring for toxicity (Heparin, Nitro, Insulin, Cardizem)? @ -No Were any procedures done? @ -No Diagnosis/symptom? @ -Acute nausea vomiting Acute, or Chronic, or Acute on Chronic? @ -Acute Uncomplicated (without systemic symptoms) or Complicated (systemic symptoms)? @ -Complicated Side effects of treatment? @ -No Exacerbation, Progression, or Severe Exacerbation? @ -No Poses a threat to life or bodily function? How? (Chest pain, [place], [place], pneumonia, PE, COPD, DKA, ARF, appy, cholecystitis, CVA, Diverticulitis, Homicidal, Suicidal, threat to staff... and all critical care pts) @ -No - Lab Data Result diagrams: 07/04/24 07:43 07/04/24 07:43 Lab Results 07/04/24 07/04/24 07/04/24 Range/Units 07:43 07:43 07:43 WBC 10.42 H (4.50-10.00) 10*3/uL RBC 3.46 L (4.40-5.60) 10*6/uL Hgb 11.3 L (13.0-17.0) g/dL Hct 33.4 L (39.6-50.0) % MCV 96.5 (80.0-97.0) fL MCH 32.7 H (27.0-32.0) pg MCHC 33.8 (32.0-37.0) g/dL Plt Count 303 (140-440) 10*3/uL MPV 9.1 L (9.5-12.2) fL Immature Gran % (Auto) 0.8 % Neutrophils % 88.8 % Lymphocytes % 6.0 % Monocytes % 3.5 % Eosinophils % 0.7 % Basophils % 0.2 % Immature Gran # 0.08 H (0.00-0.04) 10*3/uL Neutrophils # 9.26 H (1.80-7.70) 10*3/uL Lymphocytes # 0.63 L (0.90-5.00) 10*3/uL Monocytes # 0.36 (0.20-1.00) 10*3/uL Eosinophils # 0.07 (0.04-0.35) 10*3/uL Basophils # 0.02 (0.00-0.10) 10*3/uL PT 11.4 (10.0-12.5) sec INR 1.0 (<1.2) Sodium 141 (137-145) mmol/L Potassium 4.1 (3.5-5.1) mmol/L Chloride 106 (98-107) mmol/L Carbon Dioxide 26 (22-30) mmol/L Anion Gap 9 mmol/L BUN 16 (9-20) mg/dL Creatinine 0.88 (0.66-1.25) mg/dL Est GFR (CKD-EPI)AfAm >90 (>60 ml/min/1.73 sqM) Est GFR (CKD-EPI)NonAf >90 (>60 ml/min/1.73 sqM) Glucose 105 H (74-99) mg/dL Plasma Lactic Acid [place] (0.7-2.0) mmol/L Calcium 9.1 (8.4-10.2) mg/dL Total Bilirubin 0.7 (0.2-1.3) mg/dL AST 41 (17-59) U/L ALT 24 (4-49) U/L Alkaline Phosphatase 52 (38-126) U/L Troponin I (0.000-0.034) ng/mL Total Protein 6.5 (6.3-8.2) g/dL Albumin 4.0 (3.5-5.0) g/dL Lipase 30 (23-300) U/L Urine Color Urine Appearance (Clear) Urine pH (5.0-8.0) Ur Specific [place] (1.001-1.035) Urine Protein (Negative) Urine Glucose (UA) (Negative) Urine Ketones (Negative) Urine Blood (Negative) Urine Nitrite (Negative) Urine Bilirubin (Negative) Urine Urobilinogen (<2.0) mg/dL Ur Leukocyte Esterase (Negative) Urine WBC (0-5) /hpf Ur Squamous Epith Cells (0-4) /hpf Urine Mucus (None) /hpf Blood Type Blood Type Recheck Bld Type Recheck Status Antibody Screen Spec Expiration Date 07/04/24 07/04/24 07/04/24 Range/Units 07:43 07:43 07:50 WBC (4.50-10.00) 10*3/uL RBC (4.40-5.60) 10*6/uL Hgb (13.0-17.0) g/dL Hct (39.6-50.0) % MCV (80.0-97.0) fL MCH (27.0-32.0) pg MCHC (32.0-37.0) g/dL Plt Count (140-440) 10*3/uL MPV (9.5-12.2) fL Immature Gran % (Auto) % Neutrophils % % Lymphocytes % % Monocytes % % Eosinophils % % Basophils % % Immature Gran # (0.00-0.04) 10*3/uL Neutrophils # (1.80-7.70) 10*3/uL Lymphocytes # (0.90-5.00) 10*3/uL Monocytes # (0.20-1.00) 10*3/uL Eosinophils # (0.04-0.35) 10*3/uL Basophils # (0.00-0.10) 10*3/uL PT (10.0-12.5) sec INR (<1.2) Sodium (137-145) mmol/L Potassium (3.5-5.1) mmol/L Chloride (98-107) mmol/L Carbon Dioxide (22-30) mmol/L Anion Gap mmol/L BUN (9-20) mg/dL Creatinine (0.66-1.25) mg/dL Est GFR (CKD-EPI)AfAm (>60 ml/min/1.73 sqM) Est GFR (CKD-EPI)NonAf (>60 ml/min/1.73 sqM) Glucose (74-99) mg/dL Plasma Lactic Acid [place] 1.1 (0.7-2.0) mmol/L Calcium (8.4-10.2) mg/dL Total Bilirubin (0.2-1.3) mg/dL AST (17-59) U/L ALT (4-49) U/L Alkaline Phosphatase (38-126) U/L Troponin I 0.014 (0.000-0.034) ng/mL Total Protein (6.3-8.2) g/dL Albumin (3.5-5.0) g/dL Lipase (23-300) U/L Urine Color Urine Appearance (Clear) Urine pH (5.0-8.0) Ur Specific [place] (1.001-1.035) Urine Protein (Negative) Urine Glucose (UA) (Negative) Urine Ketones (Negative) Urine Blood (Negative) Urine Nitrite (Negative) Urine Bilirubin (Negative) Urine Urobilinogen (<2.0) mg/dL Ur Leukocyte Esterase (Negative) Urine WBC (0-5) /hpf Ur Squamous Epith Cells (0-4) /hpf Urine Mucus (None) /hpf Blood Type A Positive Blood Type Recheck A Pos Bld Type Recheck Status No Antibody Screen NEGATIVE Spec Expiration Date 07/07/2024 - 234907/04/24 Range/Units 09:51 WBC (4.50-10.00) 10*3/uL RBC (4.40-5.60) 10*6/uL Hgb (13.0-17.0) g/dL Hct (39.6-50.0) % MCV (80.0-97.0) fL MCH (27.0-32.0) pg MCHC (32.0-37.0) g/dL Plt Count (140-440) 10*3/uL MPV (9.5-12.2) fL Immature Gran % (Auto) % Neutrophils % % Lymphocytes % % Monocytes % % Eosinophils % % Basophils % % Immature Gran # (0.00-0.04) 10*3/uL Neutrophils # (1.80-7.70) 10*3/uL Lymphocytes # (0.90-5.00) 10*3/uL Monocytes # (0.20-1.00) 10*3/uL Eosinophils # (0.04-0.35) 10*3/uL Basophils # (0.00-0.10) 10*3/uL PT (10.0-12.5) sec INR (<1.2) Sodium (137-145) mmol/L Potassium (3.5-5.1) mmol/L Chloride (98-107) mmol/L Carbon Dioxide (22-30) mmol/L Anion Gap mmol/L BUN (9-20) mg/dL Creatinine (0.66-1.25) mg/dL Est GFR (CKD-EPI)AfAm (>60 ml/min/1.73 sqM) Est GFR (CKD-EPI)NonAf (>60 ml/min/1.73 sqM) Glucose (74-99) mg/dL Plasma Lactic Acid [place] (0.7-2.0) mmol/L Calcium (8.4-10.2) mg/dL Total Bilirubin (0.2-1.3) mg/dL AST (17-59) U/L ALT (4-49) U/L Alkaline Phosphatase (38-126) U/L Troponin I (0.000-0.034) ng/mL Total Protein (6.3-8.2) g/dL Albumin (3.5-5.0) g/dL Lipase (23-300) U/L Urine Color Yellow Urine Appearance Clear (Clear) Urine pH 6.0 (5.0-8.0) Ur Specific [place] 1.027 (1.001-1.035) Urine Protein Negative (Negative) Urine Glucose (UA) Negative (Negative) Urine Ketones Negative (Negative) Urine Blood Negative (Negative) Urine Nitrite Negative (Negative) Urine Bilirubin Negative (Negative) Urine Urobilinogen <2.0 (<2.0) mg/dL Ur Leukocyte Esterase Negative (Negative) Urine WBC 1 (0-5) /hpf Ur Squamous Epith Cells <1 (0-4) /hpf Urine Mucus Occasional H (None) /hpf Blood Type Blood Type Recheck Bld Type Recheck Status Antibody Screen Spec Expiration Date Disposition Clinical Impression: Nausea and vomiting, Gastroenteritis Disposition: HOME SELF-CARE Condition: Stable Instructions (If sedation given, give patient instructions): Acute Nausea and Vomiting (ED) Additional Instructions: Please utilize the nausea and diarrhea medications as they have been prescribed. Return to the emergency department any new or worsening symptoms Prescriptions: Diphenoxylate HCl/Atropine [Lomotil 2.5-0.025 mg Tablet] 1 tab PO QID PRN #24 tab PRN Reason: Diarrhea Metoclopramide [Reglan] 10 mg PO TID PRN #30 tab PRN Reason: Nausea Is patient prescribed a controlled substance at d/c from ED?: No Referrals: Nonstaff,Physician [Primary Care Provider] - 1-2 days Time of Disposition: 14:07
[2024-07-04 14:37] VITALS: BP 132/78; PULSE 65; RESP 18; TEMP 97.8
== END 2024-07-04 14:43 | disposition home or self-care (01) ==
LOC: EC 07:16
DX: K52.9 Noninfective gastroenteritis and colitis, unspecified (principal); R11.2 Nausea with vomiting, unspecified; F17.200 Nicotine dependence, unspecified, uncomplicated; Z88.0 Allergy status to penicillin
CPT/HCPCS: 36415; 93005; 86900; 86901; 80053; 83605; 83690; 84484; 85025; 85610; 86850; 81003; 74018; 99284; 96374; 96375; 96361; J2470; J1308